=== PATIENT | female | born 1935 | race Caucasian/White ===

== ENCOUNTER 2016-04-13 09:42 | Emergency (ER) | payer OTHER ==
[2016-04-13 09:49] VITALS: TEMP 97.7
--- NOTE | 2016-04-13 10:35 | EDPHY ---
H & P Stated Complaint: LLE swelling x 2 wks;sent from PCPs office for eval poss DVT Time Seen by Provider: 04/13/16 10:08 HPI/ROS: CHIEF COMPLAINT: Left lower extremity edema HISTORY OF PRESENT ILLNESS: 81-year-old female in the ER with daughter with whom she lives complaining of 2 weeks of left lower extremity edema, seen by her PCP this morning referred to the ER for evaluation, ultrasound. No chest pain. No dyspnea. No discoloration lower extremity. No trauma. No immobilization. No thromboembolic disorder history. PRIMARY CARE PROVIDER:[facility] REVIEW OF SYSTEMS: A ten point review of systems was performed and is negative with the exception of the items mentioned in the HPI PAST MEDICAL & SURGICAL HISTORY: No thromboembolic disorder history SOCIAL HISTORY:lives with daughter PHYSICAL EXAM (Prior to examination, patient consented to physical exam, hands were washed and my usual and customary physical exam procedures followed) 1) GENERAL: Well-developed, well-nourished, alert and oriented. Appears to be in no acute distress.Smiling, shakes my hand appears well 2) HEAD: Normocephalic, atraumatic 3) HEENT: Pupils equal, round, reactive to light bilaterally. Sclera anicteric. 4) NECK: Full range of motion, no meningeal signs. 5) LUNGS: Clear auscultation bilaterally, no wheezes, no rhonchi, no retractions. 6) HEART: Regular rate and rhythm, no murmur, no heave, no gallop. 7) ABDOMEN: No guarding, no rebound, no focal tenderness, 8) MUSCULOSKELETAL: Left lower extremity: Asymmetrical soft tissue swelling/ edema of the lower extremities noted. Normal color normal temperature. DP PT pulses are present and brisk and equal bilaterally. Capillary refill is brisk and equal bilaterally with normal color normal temperature of the feet. Compartments are soft 9) BACK: no visual or palpable abnormality. 10) SKIN: No rash, no petechiae. 11) Psychiatric: Patient is oriented X 3, there is no agitation. DIFFERENTIAL DIAGNOSIS: in no particular include but not limited to cellulitis , compartment syndrome, dependent edema, DVT, arterial occlusion - Personal History Current Tetanus Diphtheria and Acellular Pertussis (TDAP): Unsure Tetanus Vaccine Date: < 10 years - Medical/Surgical History Hx Asthma: No Hx Chronic Respiratory Disease: No Hx Diabetes: No Hx Cardiac Disease: Yes Hx Renal Disease: No Hx Cirrhosis: No Hx Alcoholism: No Hx HIV/AIDS: No Hx Splenectomy or Spleen Trauma: No Other PMH: GERD, HTN, laminectomy, heart blood flow condition, tonsillectomy, adenoids removed - Social History Smoking Status: Former smoker Constitutional: Initial Vital Signs Temperature (C) 36.5 C 04/13/16 09:45 Heart Rate 81 04/13/16 09:45 Respiratory Rate 20 04/13/16 09:45 Blood Pressure 120/72 04/13/16 09:45 O2 Sat (%) 97 04/13/16 09:45 O2 Delivery Mode Room Air Allergies/Adverse Reactions: No Known Allergies Allergy (Verified 04/13/16 09:44) Home Medications: Medication Instructions Recorded Esomeprazole Magnesium [Nexium] 20 mg PO 04/13/16 Rivaroxaban [Xarelto 15mg (*)] 15 mg PO BID #42 tab 04/13/16 Medical Decision Making ED Course/Re-evaluation: 11:15 a.m.: Patient noted to have a DVT from the common femoral to the posterior tibial vein. Left message with Dr Colon to discuss possible interventional radiology. Discussed case with Dr Massey. 11:50 a.m.: Phone consultation Dr. Vickie Colon will come to the ER to discuss possible interventional radiology intervention 1:10 p.m.: Dr. Vickie Colon has consulted, does not feel that the benefits outweigh the risks for interventional procedure, recommended outpatient therapy. This was discussed with the patient and her daughter and they feel comfortable with this plan. The patient lives with her daughter and her son-in-law, who is a physician. They would like to be discharged, have been offered admission however they prefer to go home and treated on outpatient basis with Xarelto. 1:20 p.m.: I consulted with the patient's primary care provider Dr. Heard, updated him with the positive DVT findings. He requested that a CT angiography of the chest be obtained as well. 2:40 p.m.: Re-evaluation, discussed her positive CT angiography findings positive for multiple subsegmental pulmonary emboli. She is maintaining normal saturations, normotensive, normal heart rate, normal respiratory rate.. Plan will be discharge home, treatment with Xarelto 50 mg p.o. twice daily times 15 days and then transition to 20 mg. She will need follow-up with Dr. Heard next week (today is Saturday). - Data Points Laboratory Results: Laboratory Results 04/13/16 10:20 04/13/16 10:20 04/13/16 04/13/16 04/13/16 10:20 10:20 10:20 WBC 11.18 10^3/uL H 10^3/uL (3.80-9.50) RBC 4.80 10^6/uL 10^6/uL (4.18-5.33) Hgb 13.3 g/dL g/dL (12.6-16.3) Hct 40.1 % % (38.0-47.0) MCV 83.5 fL fL (81.5-99.8) MCH 27.7 pg L pg (27.9-34.1) MCHC 33.2 g/dL g/dL (32.4-36.7) RDW 13.5 % % (11.5-15.2) Plt Count 372 10^3/uL 10^3/uL (150-400) MPV 8.9 fL fL (8.7-11.7) Neut % (Auto) 64.6 % % (39.3-74.2) Lymph % (Auto) 25.0 % % (15.0-45.0) [place] % (Auto) 7.2 % % (4.5-13.0) Eos % (Auto) 2.3 % % (0.6-7.6) Baso % (Auto) 0.4 % % (0.3-1.7) Nucleat RBC Rel Count 0.0 % % (0.0-0.2) Absolute Neuts (auto) 7.22 10^3/uL H 10^3/uL (1.70-6.50) Absolute Lymphs (auto) 2.79 10^3/uL 10^3/uL (1.00-3.00) Absolute Monos (auto) 0.80 10^3/uL 10^3/uL (0.30-0.80) Absolute Eos (auto) 0.26 10^3/uL 10^3/uL (0.03-0.40) Absolute Basos (auto) 0.05 10^3/uL 10^3/uL (0.02-0.10) Absolute Nucleated RBC 0.00 10^3/uL 10^3/uL (0-0.01) Immature Gran % 0.5 % % (0.0-1.1) Immature Gran # 0.06 10^3/uL 10^3/uL (0.00-0.10) PT 14.6 SEC SEC (12.0-15.0) INR 1.15 (0.83-1.16) APTT 31.0 SEC SEC (23.0-38.0) Sodium 141 mEq/L mEq/L (134-144) Potassium 4.6 mEq/L mEq/L (3.5-5.2) Chloride 106 mEq/L mEq/L (97-110) Carbon Dioxide 23 mEq/l mEq/l (22-31) Anion Gap 12 mEq/L mEq/L (8-16) BUN 15 mg/dL mg/dL (7-23) Creatinine 1.1 mg/dL H mg/dL (0.6-1.0) Estimated GFR 48 Glucose 100 mg/dL mg/dL (70-100) Calcium 9.7 mg/dL mg/dL (8.5-10.4) Departure - Departure Disposition: Home, Routine, Self-Care Clinical Impression: DVT of leg (deep venous thrombosis) Qualifiers: Affected thrombotic vein of extremity: femoral Laterality: left Chronicity: acute Qualified Code(s): I82.412 - Acute embolism and thrombosis of left femoral vein Pulmonary emboli Qualifiers: Pulmonary embolism type: other Chronicity: acute Acute cor pulmonale presence: without acute cor pulmonale Qualified Code(s): I26.99 - Other pulmonary embolism without acute cor pulmonale Condition: Good Instructions: Deep Venous Thrombosis (ED) Additional Instructions: Return to the ER immediately if you develop chest pain, shortness of breath, dizziness, headache, or any other symptoms that concern you. Referrals: Portillo Heard MD [Primary Care Provider] - 2-3 days, call for appt. Prescriptions: Rivaroxaban [Xarelto 15mg (*)] 15 mg PO BID #42 tab
[2016-04-13 10:41] LABS: % IMMATURE GRANULYOCYTES 0.5 % (0.0-1.1); ABSOLUTE IMMATURE GRANULOCYTES 0.06 10^3/uL (0.00-0.10); ADD DIFF? NO; ADD MORPH? NO; ADD SCAN? NO; ATYPICAL LYMPHOCYTE FLAG 10 (0-99); FRAGMENT RBC FLAG 0 (0-99); HEMATOCRIT 40.1 % (38.0-47.0); HEMOGLOBIN 13.3 g/dL (12.6-16.3); LEFT SHIFT FLG 0 (0-99); LIPEMIA HEMOLYSIS FLAG 80 (0-99); MEAN CELL HEMOGLOBIN 27.7 pg (27.9-34.1); MEAN CELL HEMOGLOBIN CONCENTR. 33.2 g/dL (32.4-36.7); MEAN CELL VOLUME 83.5 fL (81.5-99.8); MEAN PLATELET VOLUME 8.9 fL (8.7-11.7); PLATELET CLUMPS FLAG 0 (0-99); PLATELET COUNT 372 10^3/uL (150-400); RED CELL DISTRIBUTION WIDTH 13.5 % (11.5-15.2)
[2016-04-13 10:50] LABS: INR 1.15 (0.83-1.16); PROTIME(PATIENT) 14.6 SEC (12.0-15.0)
[2016-04-13 10:54] LABS: ANION GAP 12 mEq/L (8-16); CALCIUM 9.7 mg/dL (8.5-10.4); CARBON DIOXIDE 23 mEq/l (22-31); CHLORIDE 106 mEq/L (97-110); CREATININE 1.1 mg/dL (0.6-1.0); GLOMERULAR FILTRATION RATE 48; GLUCOSE 100 mg/dL (70-100); POTASSIUM 4.6 mEq/L (3.5-5.2); SODIUM 141 mEq/L (134-144)
[2016-04-13] MEDS ORDERED: IOPAMIDOL (ISOVUE-370) 150 ML BTL IV ONE ×2 (13:28→13:37)
[2016-04-13 13:59] VITALS: RESP 16
[2016-04-13] MEDS ORDERED: RIVAROXABAN 15 MG TAB PO ONE (14:40)
[2016-04-13 15:15] VITALS: BP 119/88; PULSE 89; O2SAT 96
== END 2016-04-13 15:14 | disposition home or self-care (01) ==
DX: I82.412 Acute embolism and thrombosis of left femoral vein (principal); I26.99 Other pulmonary embolism without acute cor pulmonale; I10 Essential (primary) hypertension; Z87.891 Personal history of nicotine dependence; M79.605 Pain in left leg; R60.0 Localized edema; Z91.19 Patient's noncompliance with other medical treatment and regimen
CPT/HCPCS: 71275; 93971; 99285; Q9967; G0463-PO

== ENCOUNTER 2016-09-11 11:23 | Emergency (ER) | payer OTHER ==
[2016-09-11 11:29] VITALS: TEMP 97.5; O2SAT 97
--- NOTE | 2016-09-11 13:35 | EDPHY ---
H & P Stated Complaint: FELL 5 DAYS AGO, LEFT WRIST INJURY Source: Patient, Family Exam Limitations: No limitations - Personal History Current Tetanus/Diphtheria Vaccine: Yes Tetanus Vaccine Date: < 10 years - Medical/Surgical History Hx Asthma: No Hx Chronic Respiratory Disease: No Hx Diabetes: No Hx Cardiac Disease: Yes Hx Renal Disease: No Hx Cirrhosis: No Hx Alcoholism: No Hx HIV/AIDS: No Hx Splenectomy or Spleen Trauma: No Other PMH: GERD, HTN, laminectomy, heart blood flow condition, tonsillectomy, adenoids removed - Social History Smoking Status: Former smoker HPI/ROS: CHIEF COMPLAINT: Fall, wrist pain HISTORY OF PRESENT ILLNESS: Patient complains of fall 5 days ago [place] She fell backwards, putting her left arm out to break her fall. She did not strike her head or lose consciousness. Her daughter was with her and witness this. She states she only caught herself with her left arm. Since that time she has had pain in her left wrist. It is moderate to severe. Minimal when she holds still against her body. No numbness or tingling. No radiating pain. She does have some associated left elbow pain. No other associated complaints or modifying factors. She did not take any anticoagulants. MEDICAL HISTORY: Hypertension and diabetes SOCIAL HISTORY: Lives independently here with her family REVIEW OF SYSTEMS: Ten systems reviewed and are negative unless otherwise noted in the HPI EXAMINATION General Appearance: Alert, no distress Cardiovascular: Pulses normal throughout. Symmetric radial pulses 2+ Brisk cap refill Neurological: A&O, sensory symmetric, strength symmetric. Normal strength of the interossei. Normal sensation in the radial, median ulnar distributions Skin: Warm and dry, no rash mild ecchymosis over the wrist Extremities: Tenderness over the left elbow generally. No point tenderness of the radial head. There is tenderness of the distal wrist. No tenderness of the anatomic snuffbox on the left. No tenderness of the metacarpals. Range of motion of the left elbow was intact. Range of motion of left shoulder intact. Neurovascular intact distal to the injury. Psychiatric: Mood and affect normal DIFFERENTIAL DIAGNOSES: Including but not limited to fracture, sprain, strain, dislocation, fracture dislocation, contusion, hematoma MDM: 12:30 p.m. Mechanical fall 5 days ago with pain in the left wrist. She does have radial compression fracture and ulnar styloid fracture by my interpretation. She is neurovascular intact. There is some pain of the elbow, thus I have ordered elbow x-ray. No head or neck injury. No loss of conscious. No headache. No chest or back pain. She is resting comfortably in no acute distress. 1:30 p.m. X-ray of the elbow is unremarkable for acute fracture dislocation. Films been reviewed Dr. Foster. He recommends hand consultation for the possibility of reduction versus surgical intervention. 2:30 p.m. Case has been discussed between Dr. Foster and PA with Dr. Pérez office. They recommended attempted reduction of the wrist and they would like to see the patient in the morning in their office. We discussed this with the patient. They were at 1st reluctant to stay as they had other obligations to go home to. However they reconsidered. They have allowed us to proceed with closed reduction. I have applied a hematoma block. I will place her in the finger traps and attempt gentle traction reduction. She remains neurovascular intact. 3:00 p.m. I have performed a closed reduction of the left distal radius fracture. There was minimal improvement by visualization. The x-ray shows minimal change if any at all. She was discharged home in stable condition in a splint. She was instructed to be nonweightbearing on the extremity and follow up tomorrow morning with Dr. Pérez. She was discharged home stable condition. Procedure: Hematoma block Indication: Left wrist fracture Consent: Verbal from patient and daughter at bedside Description: The dorsum of the left wrist was prepped with chlorhexidine. 7 mL as of 1% lidocaine plain was infused over the area fracture line. Good anesthesia. Tolerated well. No complication. Brisk cap refill distally. PROCEDURE: Closed reduction of distal radius fracture Consent: Verbal Location: Left distal radius Anesthesia: Hematoma block Procedure: After good anesthesia, the patient's fingers were placed in finger traps. Gentle traction was applied. There was some manipulation of the distal radius. By visualization, there is improvement in the alignment. Patient be placed in a splint and x-ray performed for post attempted reduction pain Complications: None Post-reduction film: Pending ED Precautions: Worsening pain. Erythema, edema, cyanosis, pallor, paresthesia or anesthesia. SUPERVISION: Patient was evaluated in conjunction with the supervising physician. Please see their note for details. (Micah Mccartney) Constitutional: Initial Vital Signs Temperature (C) 36.4 C 09/11/16 11:25 Heart Rate 76 09/11/16 11:25 Respiratory Rate 16 09/11/16 11:25 Blood Pressure 133/69 H 09/11/16 11:25 O2 Sat (%) 97 09/11/16 11:25 O2 Delivery Mode Room Air Allergies/Adverse Reactions: No Known Allergies Allergy (Verified 09/11/16 11:30) Home Medications: Medication Instructions Recorded Esomeprazole Magnesium [Nexium] 20 mg PO 04/13/16 Rivaroxaban [Xarelto 15mg (*)] 15 mg PO BID #42 tab 04/13/16 Levothyroxine 09/11/16 Probiotic 09/11/16 Sertraline HCl 09/11/16 Medical Decision Making - Diagnostics Imaging Results: Imaging Impressions Wrist X-Ray 09/11/16 11:32 Impression: 1. Acute comminuted intraarticular distal radial fracture with minimal angulation. 2. Acute minimally displaced ulnar styloid fracture. 3. Intact navicular bone. Elbow X-Ray 09/11/16 12:31 Impression: Negative. No acute fracture or effusion. Wrist X-Ray 09/11/16 14:43 Impression: Minimally improved alignment of comminuted intraarticular distal radius fracture now in splint. Other Provider: PHYSICIAN DOCUMENTATION: The patient was evaluated and managed by the Physician Mechanical Applications Engineer and myself. I have reviewed the chart and agree with the findings and plan of care as documented. In addition, I examined the patient myself at 1404. History confirmed as fall/injury 5 days ago. Physical findings as follows: Normal capillary refill, motor and sensation distally. Discussed with Tigist Pérez, Dr. Pérez reviewed x-rays and recommended follow-up tomorrow in the office at 8:15 a.m., NPO after midnight, attempt at reduction in the emergency department but surgery tomorrow afternoon if unsuccessful. Patient and daughter warned surgeon may recommend ORIF, NPO after midnight tonight to be eligible for procedure tomorrow if desired. I am the secondary supervising physician. (Candelario Foster) Departure - Departure Disposition: Home, Routine, Self-Care Clinical Impression: Radius distal fracture Qualifiers: Encounter type: initial encounter Fracture type: closed Fracture morphology: unspecified fracture morphology Laterality: left Qualified Code(s): S52.502A - Unspecified fracture of the lower end of left radius, initial encounter for closed fracture Fracture of ulnar styloid Qualifiers: Encounter type: initial encounter Fracture type: closed Fracture alignment: displaced Laterality: left Qualified Code(s): S52.612A - Displaced fracture of left ulna styloid process, initial encounter for closed fracture Condition: Good Instructions: Wrist Fracture in Adults (ED), Splint Care (ED) Additional Instructions: 1. Splint in place at all times 2. Follow-up tomorrow morning a.m. in Dr. Pérez office here in [place] 3. Nothing to eat or drink after midnight tonight Referrals: Arthur Pérez MD [Medical Doctor] - 09/12/16 8:00 am (No food or water, no oral intake after midnight tonight. See Dr. Pérez in the office tomorrow appointment is at 0815.)
[2016-09-11 15:16] VITALS: BP 128/66; PULSE 75; RESP 18
== END 2016-09-11 15:16 | disposition home or self-care (01) ==
PROC: 0PSJXZZ Reposition Left Radius, External Approach (ICD-10-PCS; principal; 2016-09-11)
DX: S52.502A Unspecified fracture of the lower end of left radius, initial encounter for closed fracture (principal); S52.612A Displaced fracture of left ulna styloid process, initial encounter for closed fracture; I10 Essential (primary) hypertension; E11.9 Type 2 diabetes mellitus without complications; Z87.891 Personal history of nicotine dependence; W18.39XA Other fall on same level, initial encounter
CPT/HCPCS: 25605; 73080; 73100; 73110; 99283; A4565

== ENCOUNTER 2016-09-12 13:23 | Day surgery (SDC) | payer OTHER ==
[2016-09-12] MEDS ORDERED: BUPIVACAINE 0.5% 30 ML SDV ONE ×2 (13:29→14:43)
[2016-09-12] MEDS ORDERED: LR 1,000 ML IV ONE (14:15)
[2016-09-12] MEDS ORDERED: MIDAZOLAM 2 MG/2 ML VIAL IVP ONE (14:32)
[2016-09-12] MEDS ORDERED: MIDAZOLAM 2 MG/2 ML VIAL ONE (14:34)
[2016-09-12] MEDS ORDERED: fentaNYL 100 MCG/2 ML INJ ONE (14:38)
[2016-09-12] MEDS ORDERED: PROPOFOL 200 MG/20 ML VIAL ONE (14:38)
[2016-09-12] MEDS ORDERED: CEFAZOLIN 1 GM/DEXTROSE/50 ML BAG IV ONE (14:53)
[2016-09-12] MEDS ORDERED: LIDOCAINE 2% 5 ML SDV ONE (15:29)
[2016-09-12] MEDS ORDERED: ONDANSETRON 4 MG/2 ML VIAL ONE (15:29)
[2016-09-12 15:54] VITALS: BP 124/75; RESP 16; TEMP 97.7
[2016-09-12] MEDS ORDERED: fentaNYL 100 MCG/2 ML INJ IVP PRN (15:54)
[2016-09-12] MEDS ORDERED: NALOXONE HCL 0.4 MG/ML INJ IVP PRN (15:54)
[2016-09-12] MEDS ORDERED: OXYCODONE/APAP 5/325 TAB PO PRN (15:54)
[2016-09-12] MEDS ORDERED: HYDROCODONE/APAP 5/325 TAB PO PRN (15:54)
[2016-09-12] MEDS ORDERED: ONDANSETRON 4 MG/2 ML VIAL IVP PRN (15:54)
[2016-09-12] MEDS ORDERED: ACETAMINOPHEN 500 MG TAB PO PRN (15:54)
--- NOTE | 2016-09-12 15:56 | POSTANESTH ---
Post Anesthetic Evaluation Cardiovascular Status: Normal, Stable Respiratory Status: Normal, Stable Level of Consciousness/Mental Status: Can Participate in Eval Pain Control: Adequate, Prn Tx Ordered Nausea/Vomiting Control: Adequate, Prn Tx Ordered Complications Possibly Related to Anesthesia: None Noted
[2016-09-12 17:00] VITALS: PULSE 88; O2SAT 98
--- NOTE | 2016-09-13 01:39 | GOP ---
[f rep st] OPERATIVE REPORT DATE OF OPERATION: 09/12/2016 SURGEON: Arthur Pérez MD ANESTHESIA: Supraclavicular nerve block. PREOPERATIVE DIAGNOSIS: Left comminuted and displaced intra-articular fracture, distal radius, grea ter than 2 part. POSTOPERATIVE DIAGNOSIS: Left comminuted and displaced intra-articular fracture, distal radius, gre ater than 2 part. PROCEDURE PERFORMED: Closed reduction and percutaneous pinning, left distal radius fracture. FINDINGS: DESCRIPTION OF PROCEDURE: The patient was taken to the operative room, administered a supraclavicul ar nerve block and had her left upper extremity prepped and draped in normal sterile fashion. A bra chial tourniquet was applied, but not elevated. A closed reduction was performed under fluoroscopy using a hyper dorsiflexion distraction volar flexion maneuver. This brought the fracture fragments into appropriate alignment. They were not secure, and therefore, they were pinned with a 2 mm Pérez moser pin. Brought through the radial styloid process, and a 1.6 mm Steinmann pin brought through th e lunate fossa fracture segment. We had excellent reduction in both planes, and therefore, a steril e dressing followed by a coaptation splint was applied. The patient tolerated procedure well, was t ransferred back to recovery in stable condition. No operative complications. COMPLICATIONS: None. /[id number]/MODL
== END 2016-09-12 16:58 | disposition home or self-care (01) ==
LOC: FSGY 13:23
PROVIDERS: ATTEND Orthopaedic Surgery Sports Medicine
PROC: 0PSJ34Z Reposition Left Radius with Internal Fixation Device, Percutaneous Approach (ICD-10-PCS; principal; 2016-09-12 14:00)
DX: S52.572A Other intraarticular fracture of lower end of left radius, initial encounter for closed fracture (principal); W19.XXXA Unspecified fall, initial encounter; Y92.89 Other specified places as the place of occurrence of the external cause; Z86.711 Personal history of pulmonary embolism; Z86.718 Personal history of other venous thrombosis and embolism; Z79.01 Long term (current) use of anticoagulants
CPT/HCPCS: 25606; C1769; J0690; J2250; J2405; J2704; J3010

== ENCOUNTER 2017-04-10 16:02 | Inpatient (IN) | payer OTHER ==
[2017-04-10 17:06] LABS: PLATELET COUNT 300 10^3/uL (150-400)
[2017-04-10] MEDS ORDERED: IOPAMIDOL (ISOVUE 370) 100 ML BTL IV ONE (17:20)
--- NOTE | 2017-04-10 17:45 | EDPHY ---
H & P Stated Complaint: blood clots Time Seen by Provider: 04/10/17 16:33 HPI/ROS: Chief Complaint: Right leg pain and swelling HPI: 82-year-old woman presenting with right leg pain and swelling for the past 2-3 days. She does have a history of a DVT in the left leg. She lives with her daughter who says that she is very sedentary. Is not currently on any blood thinning medications. She had outpatient ultrasound performed which shows extensive right leg DVT. She was sent here for further care. No chest pain or shortness of breath. No cough. No fevers or chills. She says her legs not feel cold. No recent injuries. ROS: 10 point Review of Systems is negative except as noted in the HPI. PMH: Hypothyroidism, DVT Social History: No smoking, no alcohol, no recreational drug use Family History: non-contributory Physical Exam: Gen: Awake, Alert, No Distress HEENT: Nose: no rhinorrhea Eyes: PERRLA, EOMI Mouth: Moist mucosa Neck: Supple, no JVD Chest: nontender, lungs clear to auscultation Heart: S1, S2 normal, no murmur Abd: Soft, non-tender, no guarding Back: no CVA tenderness, no midline tenderness Ext: Right leg is edematous and tender from the calf to the meth to upper thigh. There is no erythema. She has calf tenderness. Right calf measures about 2 cm in greater circumference than the left. She has 2+ dorsalis pedis pulses. Sensations intact. Capillary refills less than 2 sec. Skin: no rash Neuro: CN II-XII intact, Sensation grossly intact, Strength 5/5 in bilateral upper and lower extremities - Personal History Current Tetanus/Diphtheria Vaccine: Yes Current Tetanus Diphtheria and Acellular Pertussis (TDAP): Yes Tetanus Vaccine Date: < 10 years - Medical/Surgical History Hx Asthma: No Hx Chronic Respiratory Disease: No Hx Diabetes: No Hx Cardiac Disease: Yes Hx Renal Disease: No Hx Cirrhosis: No Hx Alcoholism: No Hx HIV/AIDS: No Hx Splenectomy or Spleen Trauma: No Other PMH: GERD, HTN, laminectomy, heart blood flow condition, tonsillectomy, adenoids removed - Social History Smoking Status: Former smoker Constitutional: Initial Vital Signs Temperature (C) 36.6 C 04/10/17 16:24 Heart Rate 89 04/10/17 16:24 Respiratory Rate 20 04/10/17 16:24 Blood Pressure 132/76 H 04/10/17 16:24 O2 Sat (%) 92 04/10/17 16:24 O2 Delivery Mode Room Air Allergies/Adverse Reactions: No Known Allergies Allergy (Verified 04/10/17 16:21) Home Medications: Medication Instructions Recorded Esomeprazole Magnesium [Nexium] 20 mg PO 04/13/16 Levothyroxine 09/11/16 Probiotic 09/11/16 Medical Decision Making - Diagnostics EKG Interpretation: ECG time 6:44 p.m. Sinus rhythm with a rate of 92, normal axis, borderline R- wave progression, no acute ST or T-wave changes. Imaging Results: Imaging Impressions Extremity Venous Study 04/10/17 15:12 Impression: 1. There is extensive deep venous thrombosis from the visualized distal right common iliac and right external iliac vein, involving the common femoral and the femoral vein, the popliteal vein, and the posterior tibial and peroneal veins. 2. Superficial venous thrombosis involving the [id number] thigh portion of the right greater saphenous vein (to the saphenofemoral junction). Findings were discussed with Nikos HAYS MD at 3:57 PM, on 04/10/2017. Chest/Thorax CTA 04/10/17 16:43 Impression: 1. Small to moderate volume pulmonary emboli, mostly in the right lower lobe. 2. Partially visualized subcentimeter hypodensity in the pancreatic body, incompletely evaluated. Consider follow-up MRI pancreatic protocol to further evaluate. 3. Stable pulmonary nodules measuring up to 5 mm. Per Fleischner Society 2017 guidelines, no additional follow-up is needed. Dr. Ryan discussed these findings by telephone with Humble Mckeon MD on at 1810 hours. Imaging: Discussed imaging studies w/ residential assistant Radiologist ED Course/Re-evaluation: 82-year-old with extensive right leg DVT going into the iliac veins. She also has bilateral PEs right greater than left with a small to moderate clot burden. No CT findings suggestive of heart strain. Troponin is negative. I have discussed with Dr. Ryan who is also discussed with Dr. Colon, interventional Radiology. They do not feel that intravenous thrombolytics are indicated at this time. I have also discussed with Dr. Morrissey, hospitalist. He will admit to his service. He would like Lovenox now. This has been ordered. Patient be admitted to [facility] under observation status. - Data Points Laboratory Results: Laboratory Results 04/10/17 17:00 04/10/17 17:00 04/10/17 04/10/17 04/10/17 17:00 17:00 17:00 WBC 11.92 10^3/uL H 10^3/uL (3.80-9.50) RBC 4.61 10^6/uL 10^6/uL (4.18-5.33) Hgb 12.1 g/dL L g/dL (12.6-16.3) Hct 37.5 % L % (38.0-47.0) MCV 81.3 fL L fL (81.5-99.8) MCH 26.2 pg L pg (27.9-34.1) MCHC 32.3 g/dL L g/dL (32.4-36.7) RDW 14.2 % % (11.5-15.2) Plt Count 300 10^3/uL 10^3/uL (150-400) MPV 8.9 fL fL (8.7-11.7) Neut % (Auto) 64.2 % % (39.3-74.2) Lymph % (Auto) 24.9 % % (15.0-45.0) [place] % (Auto) 7.6 % % (4.5-13.0) Eos % (Auto) 2.4 % % (0.6-7.6) Baso % (Auto) 0.3 % % (0.3-1.7) Nucleat RBC Rel Count 0.0 % % (0.0-0.2) Absolute Neuts (auto) 7.65 10^3/uL H 10^3/uL (1.70-6.50) Absolute Lymphs (auto) 2.97 10^3/uL 10^3/uL (1.00-3.00) Absolute Monos (auto) 0.91 10^3/uL H 10^3/uL (0.30-0.80) Absolute Eos (auto) 0.29 10^3/uL 10^3/uL (0.03-0.40) Absolute Basos (auto) 0.03 10^3/uL 10^3/uL (0.02-0.10) Absolute Nucleated RBC 0.00 10^3/uL 10^3/uL (0-0.01) Immature Gran % 0.6 % % (0.0-1.1) Immature Gran # 0.07 10^3/uL 10^3/uL (0.00-0.10) PT 14.8 SEC SEC (12.0-15.0) INR 1.17 H (0.83-1.16) APTT 30.7 SEC SEC (23.0-38.0) Sodium 139 mEq/L mEq/L (135-145) Potassium 4.4 mEq/L mEq/L (3.5-5.2) Chloride 101 mEq/L mEq/L (97-110) Carbon Dioxide 23 mEq/l mEq/l (22-31) Anion Gap 15 mEq/L mEq/L (8-16) BUN 16 mg/dL mg/dL (7-23) Creatinine 1.1 mg/dL H mg/dL (0.6-1.0) Estimated GFR 47 Glucose 110 mg/dL H mg/dL (70-100) Calcium 9.0 mg/dL mg/dL (8.5-10.4) Troponin I < 0.012 ng/mL ng/mL (0.000-0.034) Medications Given: Discontinued Medications Enoxaparin Sodium (Lovenox) 70 mg SC EDNOW ONE Stop: 04/10/17 18:42 Last Admin: 04/10/17 18:57 Dose: 70 mg Departure - Departure Disposition: [facility] Clinical Impression: Pulmonary embolism, DVT (deep venous thrombosis) Condition: Fair
[2017-04-10 18:27] LABS: INR 1.17 (0.83-1.16); PROTIME(PATIENT) 14.8 SEC (12.0-15.0)
[2017-04-10] MEDS ORDERED: ENOXAPARIN 60 MG/0.6 ML SYR SC ONE ×2 (18:41→18:47)
[2017-04-10] MEDS ORDERED: ONDANSETRON 4 MG/2 ML VIAL IVP PRN (18:47)
[2017-04-10] MEDS ORDERED: ACETAMINOPHEN 325 MG TAB PO PRN (18:47)
[2017-04-10] MEDS ORDERED: oxyCODONE IR 5 MG TAB PO PRN (18:47)
[2017-04-10] MEDS ORDERED: ONDANSETRON DISINTEGRATING 4 MG TAB PO PRN (18:47)
--- NOTE | 2017-04-10 18:47 | CPEKG ---
Heart Rate: 92 RR Interval: 652 P-R Interval: 184 QRSD Interval: 84 QT Interval: 352 QTC Interval: 436 P [place]: 15 QRS [place]: 64 T Wave [place]: 9 EKG Severity - BORDERLINE ECG - EKG Impression: SINUS RHYTHM EKG Impression: PROBABLE LEFT ATRIAL ABNORMALITY EKG Impression: BORDERLINE R WAVE PROGRESSION, ANTERIOR LEADS Electronically Signed By: Humble Mckeon 10-Apr-2017 20:09:32
[2017-04-10] MEDS ORDERED: POLYETHYLENE GLYCOL 3350 17 GM PKT PO PRN (18:50)
[2017-04-10] MEDS ORDERED: ENOXAPARIN 80 MG/0.8 ML SYR SC ONE (18:50)
[2017-04-10] MEDS ORDERED: LACTULOSE 20 GM/30 ML UDCUP PO PRN (18:50)
[2017-04-10] MEDS ORDERED: BISACODYL 10 MG SUPP PR PRN (18:50)
[2017-04-10] MEDS ORDERED: MAGNESIUM HYDROXIDE 30 ML UDCUP PO PRN (18:50)
--- NOTE | 2017-04-10 22:15 | PDGENHP ---
History and Physical - Chief Complaint Acute leg pain - History of Present Illness Primary care provider: Dr. Heard HPI: 82-year-old female presents with acute leg pain characterized as a cramping pain located diffusely throughout her right lower extremity, but worse in the upper inner thigh with associated swelling, erythema at that location and some induration. The patient reports onset of symptoms 3 days ago and duration has been persistent thereafter. She reports that the tenderness in the affected area is exacerbated with palpation. She is able to safely ambulate. She does experience some exertional shortness of breath. Shortness of breath is alleviated with rest. She denies any recent travel, but does endorse that she is sedentary during the vast majority of the day, ambulating only when needed. The patient was on systemic anticoagulation until several months prior, when it was discontinued without any adverse events. The patient denies any history of bleeding or falls. History Information - Allergies/Home Medication List Allergies/Adverse Reactions: No Known Allergies Allergy (Verified 04/10/17 16:21) Home Medications: Esomeprazole Magnesium [Nexium] 20 mg PO DAILY 04/13/16 [Last Taken 04/10/17] Herbals/Supplements -Info Only 1 ea PO DAILY #0 09/11/16 [Last Taken 04/10/17] Levothyroxine [Synthroid 75 mcg (*)] 75 mcg PO DAILY06 #0 09/11/16 [Last Taken 04/10/17] I have personally reviewed and updated: family history, medical history, social history, surgical history - Past Medical History DVT (Left lower extremity in April of 2016 with small volume pulmonary embolism) Additional medical history: Chronic kidney disease stage 3 with baseline creatinine 1.1 - Surgical History Additional surgical history: Right radial fracture with orthopedic repair September of 2016 - Family History Additional family history: No family history of VTE - Social History Smoking Status: Former smoker Alcohol Use: Occasionally Drug Use: None Additional social history: Patient does traveled to [facility] regularly but she has not done so and at least the past 3 months, she lives a very sedentary lifestyle Review of Systems Review of Systems: ROS: 10pt was reviewed & negative except for what was stated in HPI & below Cardiac: Reports: edema (Right lower extremity) Respiratory: Reports: shortness of breath Physical Exam Physical Exam: Temp Pulse Resp BP Pulse Ox 36.8 C 92 18 127/92 H 94 04/10/17 21:35 04/10/17 21:35 04/10/17 21:35 04/10/17 21:35 04/10/17 21:35 O2 (L/minute) 2 Constitutional: no apparent distress, appears nourished, not in pain Eyes: PERRL, anicteric sclera, EOMI Ears, Nose, Mouth, Throat: moist mucous membranes, hard of hearing Cardiovascular: regular rate and rhythym, no murmur, rub, or gallop, edema (1+ right lower extremity), No irregularly irregular, No tachycardia Respiratory: no respiratory distress, no rales or rhonchi, clear to auscultation Gastrointestinal: normoactive bowel sounds, soft, non-tender abdomen, no palpable masses, No distension Skin: other (Mild induration in the right inner thigh with some blanchable erythema) Neurologic: AAOx3, sensation intact bilaterally, No weakness (Motor strength 5/ 5 bilateral upper and lower extremities) Psychiatric: interacting appropriately, not anxious, not encephalopathic, thought process linear Lab Data & Imaging Review 04/10/17 17:00 04/10/17 17:00 WBC 11.92 10^3/uL (3.80-9.50) H 04/10/17 17:00 RBC 4.61 10^6/uL (4.18-5.33) 04/10/17 17:00 Hgb 12.1 g/dL (12.6-16.3) L 04/10/17 17:00 Hct 37.5 % (38.0-47.0) L 04/10/17 17:00 MCV 81.3 fL (81.5-99.8) L 04/10/17 17:00 MCH 26.2 pg (27.9-34.1) L 04/10/17 17:00 MCHC 32.3 g/dL (32.4-36.7) L 04/10/17 17:00 RDW 14.2 % (11.5-15.2) 04/10/17 17:00 Plt Count 300 10^3/uL (150-400) 04/10/17 17:00 MPV 8.9 fL (8.7-11.7) 04/10/17 17:00 Neut % (Auto) 64.2 % (39.3-74.2) 04/10/17 17:00 Lymph % (Auto) 24.9 % (15.0-45.0) 04/10/17 17:00 Carolina % (Auto) 7.6 % (4.5-13.0) 04/10/17 17:00 Eos % (Auto) 2.4 % (0.6-7.6) 04/10/17 17:00 Baso % (Auto) 0.3 % (0.3-1.7) 04/10/17 17:00 Nucleat RBC Rel Count 0.0 % (0.0-0.2) 04/10/17 17:00 Absolute Neuts (auto) 7.65 10^3/uL (1.70-6.50) H 04/10/17 17:00 Absolute Lymphs (auto) 2.97 10^3/uL (1.00-3.00) 04/10/17 17:00 Absolute Monos (auto) 0.91 10^3/uL (0.30-0.80) H 04/10/17 17:00 Absolute Eos (auto) 0.29 10^3/uL (0.03-0.40) 04/10/17 17:00 Absolute Basos (auto) 0.03 10^3/uL (0.02-0.10) 04/10/17 17:00 Absolute Nucleated RBC 0.00 10^3/uL (0-0.01) 04/10/17 17:00 Immature Gran % 0.6 % (0.0-1.1) 04/10/17 17:00 Immature Gran # 0.07 10^3/uL (0.00-0.10) 04/10/17 17:00 PT 14.8 SEC (12.0-15.0) 04/10/17 17:00 INR 1.17 (0.83-1.16) H 04/10/17 17:00 APTT 30.7 SEC (23.0-38.0) 04/10/17 17:00 Sodium 139 mEq/L (135-145) 04/10/17 17:00 Potassium 4.4 mEq/L (3.5-5.2) 04/10/17 17:00 Chloride 101 mEq/L (97-110) 04/10/17 17:00 Carbon Dioxide 23 mEq/l (22-31) 04/10/17 17:00 Anion Gap 15 mEq/L (8-16) 04/10/17 17:00 BUN 16 mg/dL (7-23) 04/10/17 17:00 Creatinine 1.1 mg/dL (0.6-1.0) H 04/10/17 17:00 Estimated GFR 47 04/10/17 17:00 Glucose 110 mg/dL (70-100) H 04/10/17 17:00 Calcium 9.0 mg/dL (8.5-10.4) 04/10/17 17:00 Troponin I < 0.012 ng/mL (0.000-0.034) 04/10/17 17:00 Visualized and Interpreted EKG results: Yes EKG Interpretation: Positive for: other (Normal sinus mechanism, S-wave in lead 3, poor R-wave progression in leads V2 to V3) Assessment & Plan Assessment: 82-year-old female presenting with acute, 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 Deep venous thrombosis and pulmonary embolism. Present on admission, acute, recurrent, located in the right lower extremity with extension into the right common iliac and resultant small volume bilateral PEs right greater than left -most likely secondary to the patient's very sedentary lifestyle as well as a likely genetic predisposition to is thromboembolism -given her recurrence, the patient should most likely be on lifelong systemic anticoagulation -patient has not previously had any complications with Xarelto, and the patient is amenable to restarting, this will be re-initiated in the morning, 15 mg twice daily x3 weeks, then 20 mg daily thereafter -I have discussed with Dr. Shine Mckeon at urgent care, he reports to me that he has ordered the patient for an initial dose of Lovenox this evening -reviewed outside records including 04/13/[address] Vickie Colon, she evaluated the patient for a left lower extremity deep venous thrombosis that was approximately 2-week-old, and most likely secondary to the patient's sedentary lifestyle, was deemed not a good interventional situation or candidate and elevation, compression stocking and anticoagulation or the recommendations -Dr. Colon has evaluated the patient's case on this hospitalization, and she does not believe that the area requires interventional radiology lysis -will defer to the outpatient setting whether the patient chooses to undergo further workup including possible colonoscopy or mammography to rule out underlying concomitant malignancy 2. Chronic kidney disease stage 3. Creatinine currently at baseline, continue to monitor Diet. Regular Prophylaxis. High risk patient, currently on Lovenox, transitioning to Xarelto tomorrow morning Code. Do not resuscitate per patient, her son-in-law Marcel is her MD POA Disposition. Anticipated discharge is 04/11/2017, pending stabilization of above
[2017-04-10] MEDS: SENNOSIDES/DOCUSATE SODIUM TAB PO SCH (23:47)
[2017-04-10] MEDS: ENOXAPARIN 80 MG/0.8 ML SYR SC SCH (23:48)
[2017-04-11] MEDS: LEVOTHYROXINE 75 MCG TAB PO SCH (05:15)
[2017-04-11 05:42] LABS: PLATELET COUNT 288 10^3/uL (150-400)
[2017-04-11] MEDS: PANTOPRAZOLE SODIUM 40 MG TAB PO SCH (07:57)
[2017-04-11] MEDS: SENNOSIDES/DOCUSATE SODIUM TAB PO SCH ×2 (07:58→22:20)
[2017-04-11] MEDS: RIVAROXABAN 15 MG TAB PO SCH ×2 (07:59→18:06)
[2017-04-11] MEDS ORDERED: Herbals/Supplements -Info Only PO SCH (09:00)
--- NOTE | 2017-04-11 14:42 | HOSPPROG ---
Hospitalist Progress Note Assessment/Plan: #Extensive LLE DVT and pulmonary embolism -extensive RLE clot in 04/27. At that time lysis not done due to high-risk bleeding/age/dementia -due to immobility -extensive conversation with daughter. Does not want any interventions like IVC filter or lysis -Xarelto #Dementia: progressive weakness and lethargy per daughter #Fatigue #Depression: trialed SSRI in past, but used only for 6 weeks. Start Remeron which may help with appetite #Deconditioning: daughter okay with rehab if needed #Diet:regular #DVT ppx: Xarelto #Goals: daughter wants comfort/quality measures. No procedures. Open to Palliative care outpatient, place consult Time spent on visit: 45 min with patient and daughter/son-in-law. discussing treatment options, goals and Palliative Care Subjective: mild right thigh pain when moves. No CP or SOB Objective: Vital Signs Temp Pulse Resp BP Pulse Ox 37.1 C 97 16 101/60 90 L 04/11/17 12:17 04/11/17 12:17 04/11/17 12:17 04/11/17 12:17 04/11/17 12:17 Laboratory Results 04/11/17 04:54 04/11/17 04:54 04/10/17 04/11/17 04/12/17 05:59 05:59 05:59 Intake Total 350 Output Total 350 Balance 0 PT 14.8 SEC (12.0-15.0) 04/10/17 17:00 INR 1.17 (0.83-1.16) H 04/10/17 17:00 - Time Spent With Patient Time Spent with Patient: greater than 35 minutes Time Spent with Patient: Greater than 35 minutes spent on this patients care, greater than 50% of time spent counseling, educating, and coordinating care regarding the above mentioned plan. - Physical Exam Constitutional: no apparent distress Eyes: PERRL Ears, Nose, Mouth, Throat: moist mucous membranes Cardiovascular: regular rate and rhythym, no murmur, rub, or gallop Respiratory: no respiratory distress Gastrointestinal: normoactive bowel sounds, soft, non-tender abdomen Genitourinary: no bladder fullness Skin: warm Musculoskeletal: full muscle strength, other (right thigh, calf swollen. Mild TTP over thigh. No signs of infection) Neurologic: AAOx3, CN II-XII Intact ICD10 Worksheet Patient Problems: Problems Problem Status Onset DVT (deep venous thrombosis) Acute Pulmonary embolism Acute
--- NOTE | 2017-04-11 15:19 | ASMTCMCOM ---
CM Note CM Note Notes: Met with pt's dtr Dorothy to discuss DC plan. Pt currently lives in a small attached apt at dtr's home. PT and OT are recommending SNF. Currently patient is OBS. Pt will need to be inpt for 3 days for Medicare to pay. Dtr will be choosing between [facility] and [facility]. Referral faxed to both. CM will continue to follow. Date Signed: 04/11/2017 03:18 PM Electronically Signed By:Desiree Boss LCSW
[2017-04-12] MEDS: LEVOTHYROXINE 75 MCG TAB PO SCH (06:24)
[2017-04-12] MEDS: PANTOPRAZOLE SODIUM 40 MG TAB PO SCH (09:38)
[2017-04-12] MEDS: RIVAROXABAN 15 MG TAB PO SCH ×2 (09:38→19:05)
[2017-04-12] MEDS: SENNOSIDES/DOCUSATE SODIUM TAB PO SCH (09:38)
--- NOTE | 2017-04-12 09:44 | PDMN ---
Medical Necessity Medical necessity: Change to IP, as of 04/11/17, per MD; los >2 mn for ongoing management of extensive LLE DVT & PE w/progressive weakness & lethargy; admit for further monitoring, Palliative Care consult & therapies; comorbid advanced age, dementia, sedentary lifestyle & CKD stage 3; per progress note & order
--- NOTE | 2017-04-12 15:43 | ASMTCMCOM ---
CM Note CM Note Notes: Patient chart reviewed. She has been accepted to [facility] as well as [facility] and per her daughter they would like to get [facility] involved as well. Per therapy notes she is recommended to go to SNF for rehab. She was made inpatient last night and will be ready for transfer Saturday if she is medically cleared to go. CM to follow Date Signed: 04/12/2017 03:42 PM Electronically Signed By:Jyothi Oliva RN
[2017-04-12] MEDS: LOPERAMIDE HCL 2 MG CAP PO PRN (19:05)
--- NOTE | 2017-04-12 19:09 | HOSPPROG ---
Hospitalist Progress Note Assessment/Plan: #Extensive LLE DVT and pulmonary embolism -h/o extensive RLE clot in 04/27. At that time lysis not done due to high-risk bleeding/age/dementia -extensive conversation with daughter. Does not want any interventions like IVC filter or lysis. Focus on comfort. -Xarelto #Dementia: progressive weakness, decreased appetite #Depression: trialed SSRI in past, but used only for 6 weeks. Start Remeron which may help with appetite #Deconditioning: daughter okay with rehab if needed #Diet:regular #DVT ppx: Xarelto #Goals: daughter wants comfort/quality measures. No procedures. [facility]. #Disp: SNF pending, can DC Saturday if accepted Subjective: no CP or SOB. Min pain in right thigh Objective: Vital Signs Temp Pulse Resp BP Pulse Ox 36.8 C 87 16 106/59 L 93 04/12/17 17:17 04/12/17 17:17 04/12/17 17:17 04/12/17 17:17 04/12/17 17:17 Laboratory Results 04/12/17 04:42 04/12/17 04:42 04/11/17 04/12/17 04/13/17 05:59 05:59 05:59 Intake Total 475 1300 Balance 475 1300 PT 14.8 SEC (12.0-15.0) 04/10/17 17:00 INR 1.17 (0.83-1.16) H 04/10/17 17:00 - Physical Exam Constitutional: no apparent distress Eyes: PERRL Ears, Nose, Mouth, Throat: moist mucous membranes, hearing normal Cardiovascular: regular rate and rhythym, no murmur, rub, or gallop Respiratory: no respiratory distress Gastrointestinal: normoactive bowel sounds Genitourinary: no bladder fullness Skin: warm Musculoskeletal: other (right thigh, calf swollen, no redness. Min TTP over right thigh) Neurologic: CN II-XII Intact Psychiatric: interacting appropriately ICD10 Worksheet Patient Problems: Problems Problem Status Onset DVT (deep venous thrombosis) Acute Pulmonary embolism Acute
[2017-04-12] MEDS: MIRTAZAPINE 15 MG TAB PO SCH (22:15)
[2017-04-13] MEDS: SENNOSIDES/DOCUSATE SODIUM TAB PO SCH ×2 (01:08→19:41)
[2017-04-13] MEDS: LEVOTHYROXINE 75 MCG TAB PO SCH (06:19)
[2017-04-13] MEDS: NEXIUM 20 MG PO SCH (08:49)
[2017-04-13] MEDS: RIVAROXABAN 15 MG TAB PO SCH ×2 (08:49→19:47)
[2017-04-13] MEDS: [UNRECOGNIZED DRUG - OTHER] PO SCH (08:49)
--- NOTE | 2017-04-13 11:26 | HOSPPROG ---
Hospitalist Progress Note Assessment/Plan: 82-year-old admitted with increased left lower extremity pain and swelling. Diagnosed with PE and pulmonary embolism on admission. She does have history of previous clot last year. # extensive left lower extremity DVT and pulmonary embolism * Patient's family does not want any interventions and focus on comfort * Continue Xarelto for treatment * Skilled rehab # dementia: Progressive weakness # depression: Trial of SSRIs in the past recently started on Remeron this admission # deconditioning: Plan will be for the patient to go to rehab with palliative care by Marie #DVT ppx: Xarelto #Goals: daughter wants comfort/quality measures. No procedures. [facility] palliative care outpatient. #Disp: SNF pending, can DC Saturday if accepted Subjective: Patient new to co and chart reviewed. Objective: Vital Signs Temp Pulse Resp BP Pulse Ox 36.6 C 91 23 H 103/55 L 94 04/13/17 04:00 04/13/17 04:00 04/13/17 04:00 04/13/17 04:00 04/13/17 04:00 Laboratory Results 04/12/17 04:42 04/12/17 04:42 04/12/17 04/13/17 04/14/17 05:59 05:59 05:59 Intake Total 475 1550 Balance 475 1550 PT 14.8 SEC (12.0-15.0) 04/10/17 17:00 INR 1.17 (0.83-1.16) H 04/10/17 17:00 - Physical Exam Constitutional: no apparent distress, chronically ill appearing Eyes: PERRL, EOMI Ears, Nose, Mouth, Throat: moist mucous membranes Cardiovascular: regular rate and rhythym Respiratory: no respiratory distress, clear to auscultation Gastrointestinal: soft, non-tender abdomen Genitourinary: no bladder fullness Skin: warm, normal color Musculoskeletal: full muscle strength Neurologic: No AAOx3 Psychiatric: interacting appropriately ICD10 Worksheet Patient Problems: Problems Problem Status Onset Pulmonary embolism Acute DVT (deep venous thrombosis) Acute
--- NOTE | 2017-04-13 15:54 | ASMTCMCOM ---
CM Note CM Note Notes: Today Heydi called daughter Maddie to see if the family had made a decision on which SNF Pt. would d/c to. Maddie discussed plans with her and Heydi called later to get answer. Maddie would like Pt. to go to [facility] with [facility]. Lewisr called both [facility] and [facility] to confirm family's choice. Both are ready to receive Pt. Plan for d/c tomorrow (Diana) to [facility] with [facility]. [facility] to call Maddie to coordinate a time to meet. Date Signed: 04/13/2017 03:53 PM Electronically Signed By:Moira Alford LCSW
[2017-04-13] MEDS: LOPERAMIDE HCL 2 MG CAP PO PRN (19:47)
[2017-04-13] MEDS: MIRTAZAPINE 15 MG TAB PO SCH (19:49)
[2017-04-14 07:31] VITALS: RESP 16
[2017-04-14] MEDS: NEXIUM 20 MG PO SCH (09:15)
[2017-04-14] MEDS: [UNRECOGNIZED DRUG - OTHER] PO SCH (09:15)
[2017-04-14] MEDS: RIVAROXABAN 15 MG TAB PO SCH (09:15)
[2017-04-14] MEDS: LEVOTHYROXINE 75 MCG TAB PO SCH (09:15)
[2017-04-14] MEDS: SENNOSIDES/DOCUSATE SODIUM TAB PO SCH (09:15)
[2017-04-14] MEDS: LOPERAMIDE HCL 2 MG CAP PO PRN (09:21)
--- NOTE | 2017-04-14 11:09 | PDIAF ---
- Diagnosis Diagnosis: dvt/pe, dementia Code Status: Do Not Resuscitate - Medication Management Discharge Medications: Medications to Continue on Transfer Esomeprazole Magnesium [Nexium] 20 mg PO DAILY 04/13/16 [Last Taken 04/10/17] Herbals/Supplements -Info Only 1 ea PO DAILY #0 09/11/16 [Last Taken 04/10/17] Levothyroxine [Synthroid 75 mcg (*)] 75 mcg PO DAILY06 #0 09/11/16 [Last Taken 04/10/17] Loperamide HCl [Imodium 2 mg (*)] 2 mg PO PRN PRN 04/12/17 [Last Taken Unknown] Acetaminophen [Tylenol 325mg (*)] 650 mg PO Q4HRS PRN tab 04/14/17 [Last Taken Unknown] Polyethylene Glycol 3350 [Miralax 17 gm (*)] 17 gm PO DAILY PRN pkt 04/14/17 [ Last Taken Unknown] Rivaroxaban [Xarelto 15mg (*)] 15 mg PO BIDMEAL tab 04/14/17 [Last Taken Unknown] Sennosides/Docusate Sodium [Senokot-S] 1 - 2 tab PO BID tab 04/14/17 [Last Taken Unknown] Discharge Medications: Refer to the Discharge Home Medication list for PRN reason. - Orders Services needed: Registered Nurse, Certified Gospel Worker, Master Drawing Hand , Physical Therapy, Occupational Therapy Diet Recommendation: no restrictions on diet Diet Texture: Regular Texture Diet - Follow Up Care Current Providers and Referrals: Portillo Heard MD [Primary Care Provider] - As per Instructions
--- NOTE | 2017-04-14 11:30 | GDS ---
[f rep st] DISCHARGE SUMMARY DIAGNOSES: 1. Deep vein thrombosis and pulmonary embolism, acute. 2. Dementia. 3. Depression. 4. Deconditioning. CONSULTATION: Palliative care. PROCEDURES DONE: Chest and thoracic CT angiogram and lower extremity Doppler notable for PE and DVT. HOSPITAL COURSE: The patient is an 82-year-old with dementia who was admitted with shortness of janiya th and leg swelling. Evaluation revealed a DVT and PE. She was placed on Xarelto for management of this. The daughter and patient met with palliative care while in the hospital and at this time they would like to proceed with palliative care at a [facility] facility and would not like to do fur ther invasive testing. She will be discharged on ongoing Xarelto to treat her blood clots and pallia tive care will be there to ensure she has ongoing comfort measures as well. CONDITION ON DISCHARGE: Good. Vital signs stable. She is alert, pleasant, and not in pain. DISCHARGE MEDICATIONS: Please see discharge medication form. FOLLOWUP: She will be discharged to [facility] with palliative care by Marie. Total time spent with patient on day of discharge and coordination of care is 35 minutes. /[id number]/MODL
[2017-04-14 11:54] VITALS: BP 115/63; PULSE 95; TEMP 98.2; O2SAT 91
--- NOTE | 2017-04-14 18:13 | ASMTCMCOM ---
CM Note CM Note Notes: Dc order received. Spoke with pt & her daughter Maddie; agreeable to dc poc. Alerted Savannah, at [facility]. Dc paperwork faxed; confirmed received. Transport arranged. Updated RN. Alerted [facility]; informed pt has not made up her mind if she will use them yet; [facility] to follow up; pt has other info on Pallative Care agencies. No other needs at this time. Date Signed: 04/14/2017 06:13 PM Electronically Signed By:Sowmya Bueno RN
--- NOTE | 2017-04-14 18:16 | ASDISCHSUM ---
Discharge Information Plan Status:SNF Medically Cleared to Leave:04/13/2017 Discharge Date:04/14/2017 12:57 PM CM D/C Disposition:Shelter Facility ADT D/C Disposition:Shelter Facility Projected Discharge Date:04/14/2017 01:00 PM Transportation at D/C:Wheelchair Van Discharge Delay Reason: Follow-Up Date:04/14/2017 01:00 PM Discharge Slot: Final Diagnosis: Placement Information Referral Type:*Senior Care/SNF Referral ID:[id number] Provider Name:[facility] Address 1:[address] Address 2: City:[place] Selection Factors: State:[place] Referral Type:*Hospice Referral ID:[id number] Provider Name: Address 1: Phone Number: Address 2: Fax Number: City: Selection Factors: State: Patient Contact Information Contact Name:NORBERTO Relationship:Daughter Address:[address] City:[place] Alternate Phone: State/Zip Code:[place] [address] Email: Financial Information Financial Class:Medicare Primary Plan Desc:MEDICARE INPATIENT Primary Plan Number:[id number] Secondary Plan Desc:DAVIS RULE Secondary Plan Number:[id number] Assessment Information [facility] Progress Note CM Note CM Note Notes: Met with pt's dtr Dorothy to discuss DC plan. Pt currently lives in a small attached apt at dtr's home. PT and OT are recommending SNF. Currently patient is OBS. Pt will need to be inpt for 3 days for Medicare to pay. Dtr will be choosing between [facility] and [facility]. Referral faxed to both. CM will continue to follow. Date Signed: 04/11/2017 03:18 PM Electronically Signed By:Desiree Boss LCSW [facility] CM Progress Note CM Note CM Note Notes: Patient chart reviewed. She has been accepted to [facility] as well as [facility] and per her daughter they would like to get [facility] involved as well. Per therapy notes she is recommended to go to SNF for rehab. She was made inpatient last night and will be ready for transfer Saturday if she is medically cleared to go. CM to follow Date Signed: 04/12/2017 03:42 PM Electronically Signed By:Jyothi Oliva RN [facility] CM Progress Note CM Note CM Note Notes: Today Heydi called daughter Maddie to see if the family had made a decision on which SNF Pt. would d/c to. Maddie discussed plans with her and Heydi called later to get answer. Maddie would like Pt. to go to [facility] with [facility]. Heydi called both [facility] and [facility] to confirm family's choice. Both are ready to receive Pt. Plan for d/c tomorrow (Diana) to [facility]. [facility] to coordinate a time to meet. Date Signed: 04/13/2017 03:53 PM Electronically Signed By:Moira Alford LCSW [facility] CM Progress Note CM Note CM Note Notes: Dc order received. Spoke with pt & her daughter Maddie; agreeable to dc poc. Alerted Savannah at [facility]. Dc paperwork faxed; confirmed received. Transport arranged. Updated RN. Alerted [facility]; informed pt has not made up her mind if she will use them yet; [facility] to follow up; pt has other info on Pallative Care agencies. No other needs at this time. Date Signed: 04/14/2017 06:13 PM Electronically Signed By:Sowmya Bueno RN Intervention Information Intervention Type:*LIANET-Signed Date of Service:04/11/2017 10:29 AM Patient Type:Observation Staff Member:Licha Christie Hours: Discipline: Severity: Comment:
== END 2017-04-14 12:57 | DRG 299 ==
LOC: CED 16:02 → EDSTATUS 18:00 → CEDHOLD 18:47 → F1N 21:21 → OBSVTOIN 04-11 15:39
PROVIDERS: ADMIT Internal Medicine; ATTEND Internal Medicine
DX: I82.4Z1 Acute embolism and thrombosis of unspecified deep veins of right distal lower extremity (principal); I26.99 Other pulmonary embolism without acute cor pulmonale; E03.9 Hypothyroidism, unspecified; F03.90 Unspecified dementia, unspecified severity, without behavioral disturbance, psychotic disturbance, mood disturbance, and anxiety; K21.9 Gastro-esophageal reflux disease without esophagitis; F32.9 Major depressive disorder, single episode, unspecified; I12.9 Hypertensive chronic kidney disease with stage 1 through stage 4 chronic kidney disease, or unspecified chronic kidney disease; N18.3 Chronic kidney disease, stage 3 (moderate); Z51.5 Encounter for palliative care; Z87.891 Personal history of nicotine dependence
CPT/HCPCS: 71275-PO; 80048-PO; 84484-PO; 85025-PO; 85610-PO; 85730-PO; 93971-PO; 97116-GP; 97161-GP; 97166-GO; 97530-GP; 97535-GO; G0378; G0463-PO; G8978-GP-CK; G8979-GP-CI; G8987-GO-CK; G8988-GO-CI; J1650; Q9967

== ENCOUNTER 2017-07-09 11:26 | Emergency (ER) | payer OTHER ==
--- NOTE | 2017-07-09 11:51 | EDPHY ---
HPI/HX/ROS/PE/MDM Narrative: CHIEF COMPLAINT: Altered mental status HISTORY OF PRESENT ILLNESS: The patient is an anticoagulated 82 y/o female with a history of dementia found with an altered mental status by her grandson. Last night she was nauseated and vomited once. This morning, she was sitting on the kitchen stool around 10 o'clock in the morning. She was found by her grandson, slumped in her chair in such a way she may have hit her head. He helped her into a chair but she slumped over and was not at her baseline mental status. She denies any other associated injuries or symptoms. Patient and daughter deny fevers the the patient does report feeling cold. They deny any complaints of chest pain or shortness of breath. No history of palpitations. No seizure history. No diarrhea. No lightheadedness. REVIEW OF SYSTEMS: Aside from elements discussed in the HPI, a comprehensive 10-point review of systems was reviewed and is negative. PAST MEDICAL HISTORY: Dementia, hypothyroid, blood clot in april SOCIAL HISTORY: Lives with daughter, retired, nonsmoker. DNR per daughter. VITAL SIGNS: Reviewed by me GENERAL: Pleasant elderly female. Reports she feels cold. Slightly tachypneic. (Daughter reports this is chronic.) HEENT: Atraumatic. No abrasions or lacerations. Eyes: No icterus, no injection. Mouth: moist mucous membranes. No erythema or lesions. Neck: supple with no adenopathy. No tenderness to palpation. Initially arrived in a cervical collar which was removed. LUNGS: Clear to auscultation bilaterally, no wheezes, rhonchi or rales. CARDIAC: Regular rate and rhythm, no rubs, murmurs or gallops. ABDOMEN: Soft, nontender, nondistended, bowel sounds normal. BACK: No CVA tenderness. EXTREMITIES: No trauma. No edema. Range of motion is normal throughout. NEURO: Alert and oriented, grossly nonfocal. SKIN: Warm and dry, no rash. PSYCHIATRIC: Normal mentation, no agitation. ED Course: 12-LEAD EKG: Please see the full report in [facility]. My interpretation: Sinus rhythm, no acute ischemic changes. The patient presents with an episode of altered mental status and possible head injury. She was feeling nauseated last night and vomited. Her last memory this morning is sitting in the kitchen. She was found by her grandson slumped on the counter, where she may have hit her head. She continued to be below baseline mental status. Plan for CBC, basic metabolic panel, liver, lipase, troponin, UA , EKG, chest X-ray, head and cervical spine CT. 2:30 PM- CT, X-ray, EKG, and labs including troponin are largely unremarkable. [place] [id number]. Chest x-ray demonstrates no pneumonia. 2:45 PM-UA shows a probable UTI. She is going home with a prescription for Keflex. Urine will be cultured. The patient agrees with this course of action. She seems brighter and more alert after IV hydration. 1st dose of Keflex given in the emergency department. Daughter understands reasons to return. MDM: After the history was obtained and physical exam performed, the following differential for the patient's present complaint was considered included but was not limited to hypoglycemia, electrolyte disturbances, intracranial hemorrhage, infection, cardiac event, stroke, or TIA. - Data Points Imaging Results: Imaging Impressions Chest X-Ray 07/09/17 11:54 Impression: 1. No acute intrathoracic pathology. 2. Stable mild L1 superior endplate fracture. 3. Small hiatal hernia. Head CT 07/09/17 11:54 Impression: 1. Mild atrophy. 2. No acute hemorrhage, hydrocephalus, or mass effect. 3. Cerebrovascular atherosclerosis. 4. No definite acute infarct. 5. Moderate microvascular ischemic gliosis. 6. Consider MRI of the brain, if there is continued clinical concern. Findings and recommendations discussed with Emergency Department physician, Gretel Ann MD, at 1241 hour, 07/09/2017. Final report concurs with initial preliminary interpretation. Cervical Spine CT 07/09/17 11:55 Impression: 1. No definite fracture. 2. Multilevel severe degenerative disk disease, worst from C4-C5 through C6-C7 with dorsal disk/osteophyte complexes and bilateral uncovertebral osteophytes resulting in mild to moderate central canal stenosis, worse at C5-C6 and C6-C7, and variable bilateral neural foraminal stenosis, worse on the left at C4-C5 and C5-C6. 3.If there is persistent pain or neurological deficit, recommend MR cervical spine and consider flexion and extension views, if clinically indicated. Findings and recommendations discussed with Emergency Department physician, Gretel Ann MD, at 1245 hour, 07/09/2017. Final report concurs with initial preliminary interpretation. Imaging: Discussed imaging studies w/ call person Radiologist, I viewed and interpreted images myself Laboratory Results: Laboratory Results 07/09/17 11:30 07/09/17 11:30 07/09/17 07/09/17 07/09/17 14:10 11:30 11:30 WBC 14.47 10^3/uL H 10^3/uL (3.80-9.50) RBC 5.37 10^6/uL H 10^6/uL (4.18-5.33) Hgb 14.0 g/dL g/dL (12.6-16.3) Hct 44.1 % % (38.0-47.0) MCV 82.1 fL fL (81.5-99.8) MCH 26.1 pg L pg (27.9-34.1) MCHC 31.7 g/dL L g/dL (32.4-36.7) RDW 15.0 % % (11.5-15.2) Plt Count 387 10^3/uL 10^3/uL (150-400) MPV 9.9 fL fL (8.7-11.7) Neut % (Auto) 57.9 % % (39.3-74.2) Lymph % (Auto) 33.2 % % (15.0-45.0) [place] % (Auto) 6.8 % % (4.5-13.0) Eos % (Auto) 1.4 % % (0.6-7.6) Baso % (Auto) 0.5 % % (0.3-1.7) Nucleat RBC Rel Count 0.0 % % (0.0-0.2) Absolute Neuts (auto) 8.38 10^3/uL H 10^3/uL (1.70-6.50) Absolute Lymphs (auto) 4.80 10^3/uL H 10^3/uL (1.00-3.00) Absolute Monos (auto) 0.98 10^3/uL H 10^3/uL (0.30-0.80) Absolute Eos (auto) 0.20 10^3/uL 10^3/uL (0.03-0.40) Absolute Basos (auto) 0.07 10^3/uL 10^3/uL (0.02-0.10) Absolute Nucleated RBC 0.00 10^3/uL 10^3/uL (0-0.01) Immature Gran % 0.2 % % (0.0-1.1) Immature Gran # 0.03 10^3/uL 10^3/uL (0.00-0.10) RBC/WBC/PLT Morphology TNP Platelet Estimate TNP Sodium 140 mEq/L mEq/L (135-145) Potassium 4.8 mEq/L mEq/L (3.3-5.0) Chloride 103 mEq/L mEq/L (97-110) Carbon Dioxide 21 mEq/l L mEq/l (22-31) Anion Gap 16 mEq/L mEq/L (8-16) BUN 20 mg/dL mg/dL (7-23) Creatinine 1.3 mg/dL H mg/dL (0.6-1.0) Estimated GFR 39 Glucose 171 mg/dL H mg/dL (70-100) Calcium 9.7 mg/dL mg/dL (8.5-10.4) Total Bilirubin 0.7 mg/dL mg/dL (0.1-1.4) Conjugated Bilirubin 0.5 mg/dL mg/dL (0.0-0.5) Unconjugated Bilirubin 0.2 mg/dL mg/dL (0.0-1.1) AST 24 IU/L IU/L (14-46) ALT 24 IU/L IU/L (9-52) Alkaline Phosphatase 98 IU/L IU/L (38-126) Troponin I < 0.012 ng/mL ng/mL (0.000-0.034) Total Protein 7.6 g/dL g/dL (6.3-8.2) Albumin 4.1 g/dL g/dL (3.5-5.0) Lipase 109 IU/L IU/L (23-300) Urine Color YELLOW Urine Appearance HAZY Urine pH 5.0 (5.0-7.5) Ur Specific Percival 1.017 (1.002-1.030) Urine Protein NEGATIVE (NEGATIVE) Urine Ketones NEGATIVE (NEGATIVE) Urine Blood NEGATIVE (NEGATIVE) Urine Nitrate POSITIVE H (NEGATIVE) Urine Bilirubin NEGATIVE (NEGATIVE) Urine Urobilinogen NEGATIVE EU EU (0.2-1.0) Ur Leukocyte Esterase NEGATIVE (NEGATIVE) Urine RBC 1-3 /hpf /hpf (0-3) Urine WBC 5-10 /hpf H /hpf (0-3) Ur Epithelial Cells NONE SEEN /lpf /lpf (NONE-1+) Urine Bacteria 3+ /hpf H /hpf (NONE SEEN) Urine Mucus TRACE /lpf /lpf (NONE-1+) Urine Glucose NEGATIVE (NEGATIVE) Medications Given: Discontinued Medications Cephalexin HCl (Keflex) 500 mg PO EDNOW ONE PRN Reason: Protocol Stop: 07/09/17 14:43 Last Admin: 07/09/17 14:50 Dose: 500 mg General Time Seen by Provider: 07/09/17 11:30 Initial Vital Signs: Initial Vital Signs Temperature (C) 36.1 C 07/09/17 11:34 Heart Rate 72 07/09/17 11:34 Respiratory Rate 18 07/09/17 11:34 Blood Pressure 126/85 H 07/09/17 11:34 O2 Sat (%) 97 07/09/17 11:34 O2 Delivery Mode Room Air O2 (L/minute) 2 Allergies/Adverse Reactions: No Known Allergies Allergy (Verified 04/10/17 16:21) Home Medications: Medication Instructions Recorded Esomeprazole Magnesium [Nexium] 20 mg PO DAILY 04/13/16 Herbals/Supplements -Info Only 1 ea PO DAILY #0 09/11/16 Levothyroxine [Synthroid 75 mcg 75 mcg PO DAILY06 #0 09/11/16 (*)] Loperamide HCl [Imodium 2 mg (*)] 2 mg PO PRN PRN 04/12/17 Acetaminophen [Tylenol 325mg (*)] 650 mg PO Q4HRS PRN tab 04/14/17 Polyethylene Glycol 3350 [Miralax 17 gm PO DAILY PRN pkt 04/14/17 17 gm (*)] Rivaroxaban [Xarelto 15mg (*)] 15 mg PO BIDMEAL tab 04/14/17 Sennosides/Docusate Sodium 1 - 2 tab PO BID tab 04/14/17 [Senokot-S] Cephalexin [Keflex (RX)] 500 mg PO TID 7 Days cap 07/09/17 Ondansetron Odt [Zofran Odt 4 mg 4 mg PO Q6 PRN #8 tab 07/09/17 (RX)] Departure - Departure Disposition: Home, Routine, Self-Care Clinical Impression: Confusion Urinary tract infection Qualifiers: Urinary tract infection type: site unspecified Hematuria presence: without hematuria Qualified Code(s): N39.0 - Urinary tract infection, site not specified Condition: Good Instructions: Acute Delirium (ED), Urinary Tract Infection in Older Adults (ED) Additional Instructions: Please take antibiotics as directed. Keflex 500 mg by mouth 3 times a day for the next 7 days. The urine has been sent for culture. If her urinary tract infection is not sensitive to Keflex, we will contact her. Referrals: Patient,NotPresent [Unknown] - As per Instructions Portillo Heard MD [Medical Doctor] - As per Instructions Prescriptions: Cephalexin [Keflex (RX)] 500 mg PO TID 7 Days cap Ondansetron Odt [Zofran Odt 4 mg (RX)] 4 mg PO Q6 PRN #8 tab PRN Reason: Nausea Report Scribed for: Gretel Ann Report Scribed by: Leticia Ko Date of Report: 07/09/17 Time of Report: 14:41 Physician Review and Approval Statement: Portions of this note were transcribed by a medical staff services coordinator. I personally performed a history, physical exam, medical decision making, and confirmed accuracy of information the transcribed note.
[2017-07-09 12:01] LABS: PLATELET COUNT 387 10^3/uL (150-400)
--- NOTE | 2017-07-09 12:16 | CPEKG ---
Heart Rate: 70 RR Interval: 857 P-R Interval: 184 QRSD Interval: 78 QT Interval: 416 QTC Interval: 449 P Lutz: 59 QRS Lutz: 85 T Wave Lutz: 61 EKG Severity - ABNORMAL ECG - EKG Impression: SINUS RHYTHM EKG Impression: PROBABLE ANTEROSEPTAL INFARCT, AGE INDETERM Electronically Signed By: Gretel Ann 09-Jul-2017 15:19:18
[2017-07-09] MEDS ORDERED: CEPHALEXIN 500 MG CAP PO ONE (14:42)
[2017-07-09 14:52] VITALS: BP 117/66
== END 2017-07-09 15:02 | disposition home or self-care (01) ==
LOC: EDUNIT#
DX: R41.0 Disorientation, unspecified (principal); N39.0 Urinary tract infection, site not specified; B96.20 Unspecified Escherichia coli [E. coli] as the cause of diseases classified elsewhere; Z79.01 Long term (current) use of anticoagulants

== ENCOUNTER 2017-07-16 13:16 | Inpatient (IN) | payer OTHER ==
--- NOTE | 2017-07-16 14:09 | EDPHY ---
H & P Smoking Status: Former smoker Time Seen by Provider: 07/16/17 14:06 HPI/ROS: Chief complaint. Can't walk HPI. 82-year-old female with decreased ability to walk the last 5 days. She was seen in our emergency department July 09 and ultimately a diagnosis of UTI was made and the patient was given a prescription for Keflex. After taking the Keflex patient was improved for 2 days. During that workup she had a head CT which showed atrophy. Her daughter notes that again she was better for 2 days and then the past 5 days the patient has been less mobile, more confused and generally weak. Decreased oral intake. Really has a hard time walking. Her arms are fine. The patient tells me she has no pain in her chest. No difficulty breathing. No abdominal pain. No back pain. Maybe subjective fever. Patient is concerned that she continues to have a UTI. ROS Constitutional. Generalized weakness and possible subjective fever Eyes. no problems with vision ENT. no sore throat, no nasal drainage Cardiovascular. no chest pain Respiratory. no shortness of breath, no cough Abdominal. No abdominal pain or vomiting but decreased oral intake . no problems urinating MS. no calf pain/swelling, no neck/back pain, no joint pain Skin. no rash Lymph. no swollen glands Neuro. Decreased ability to walk (Dwain Villasenor) Past Medical/Surgical History: Past medical history is significant for GERD, hypertension, laminectomy, a PE/ DVT, UTI, dementia (Dwain Villasenor) Social History: , nonsmoker, lives with daughter (JacklynDwain lUloa) Physical Exam: General Appearance: Alert pleasant well-developed female mild distress vital signs are stay Eyes: Pupils equal and round no pallor or injection. ENT, Mouth: Mucous membranes are moist. Respiratory: There are no retractions, lungs are clear to auscultation. Cardiovascular: Regular rate and rhythm. Gastrointestinal: Abdomen is soft and nontender, no masses, bowel sounds normal. Neurological: Awake and alert, sensory and motor exams grossly normal. Speech is normal. Cranial nerves intact. No pronator drift. Slight decreased strength left great toe the an ability to raise the leg off the bed. Right- sided 5/5 strength, left side 4/ 5 Skin: Warm and dry, no rashes. Musculoskeletal: Neck is supple nontender. Extremities symmetrical, full range of motion. Psychiatric: Patient is oriented X 3, there is no agitation. (Dwain Villasenor) Constitutional: Initial Vital Signs Temperature (C) 36.9 C 07/16/17 13:20 Heart Rate 99 07/16/17 13:20 Respiratory Rate 18 07/16/17 13:20 Blood Pressure 128/66 H 07/16/17 13:20 O2 Sat (%) 95 07/16/17 13:20 O2 Delivery Mode Room Air Allergies/Adverse Reactions: No Known Allergies Allergy (Verified 07/16/17 13:19) Home Medications: Medication Instructions Recorded Esomeprazole Magnesium [Nexium] 20 mg PO DAILY 04/13/16 Herbals/Supplements -Info Only 1 ea PO DAILY #0 09/11/16 Levothyroxine [Synthroid 75 mcg 75 mcg PO DAILY06 #0 09/11/16 (*)] Loperamide HCl [Imodium 2 mg (*)] 2 mg PO PRN PRN 04/12/17 Acetaminophen [Tylenol 325mg (*)] 650 mg PO Q4HRS PRN tab 04/14/17 Polyethylene Glycol 3350 [Miralax 17 gm PO DAILY PRN pkt 04/14/17 17 gm (*)] Rivaroxaban [Xarelto 15mg (*)] 15 mg PO BIDMEAL tab 04/14/17 Sennosides/Docusate Sodium 1 - 2 tab PO BID tab 04/14/17 [Senokot-S] Cephalexin [Keflex (RX)] 500 mg PO TID 7 Days cap 07/09/17 Ondansetron Odt [Zofran Odt 4 mg 4 mg PO Q6 PRN #8 tab 07/09/17 (RX)] Medical Decision Making - Diagnostics EKG Interpretation: EKG interpreted by me shows normal sinus rhythm normal interval and axis. QRS is otherwise normal. No significant ST elevation or depression. No arrhythmia. The rate is 87 (Dwain Villasenor) Imaging Results: Imaging Impressions Chest X-Ray 07/16/17 14:27 Impression: Possible left lower lung zone patchy pneumonia. Chest x-ray interpreted my by me shows probable left lower lobe infiltrate ( Dwain Villasenor) Procedures: IV normal saline (Dwain Villasenor) ED Course/Re-evaluation: Septic workup and blood cultures IV Levaquin (Jacklyn,Dwain S) 3:50 p.m. The patient does not meet criteria for severe sepsis. Will admit for pneumonia. Antibiotics and fluids have been ordered. Have paged hospital service. 3:51 p.m. I spoke with Camila Pruett who will admit to the medical service. ( Junaid Laboy) Care Turn Over: Dr. Laboy at 3:00 p.m. (Dwain Villasenor) - Data Points Laboratory Results: Laboratory Results 07/16/17 15:01 07/16/17 15:01 07/16/17 07/16/17 07/16/17 15:01 15:01 15:01 WBC RBC Hgb Hct MCV MCH MCHC RDW Plt Count MPV Neut % (Auto) Lymph % (Auto) Moore % (Auto) Eos % (Auto) Baso % (Auto) Nucleat RBC Rel Count Absolute Neuts (auto) Absolute Lymphs (auto) Absolute Monos (auto) Absolute Eos (auto) Absolute Basos (auto) Absolute Nucleated RBC Immature Gran % Immature Gran # PT 15.7 SEC H SEC (12.0-15.0) INR 1.23 H (0.83-1.16) APTT 25.3 SEC SEC (23.0-38.0) VBG Lactic Acid 1.9 mmol/L mmol/L (0.7-2.1) Sodium 139 mEq/L mEq/L (135-145) Potassium 4.5 mEq/L mEq/L (3.3-5.0) Chloride 104 mEq/L mEq/L (97-110) Carbon Dioxide 24 mEq/l mEq/l (22-31) Anion Gap 11 mEq/L mEq/L (8-16) BUN 19 mg/dL mg/dL (7-23) Creatinine 1.0 mg/dL mg/dL (0.6-1.0) Estimated GFR 53 Glucose 116 mg/dL H mg/dL (70-100) Calcium 8.7 mg/dL mg/dL (8.5-10.4) Total Bilirubin 0.6 mg/dL mg/dL (0.1-1.4) Conjugated Bilirubin 0.5 mg/dL mg/dL (0.0-0.5) Unconjugated Bilirubin 0.1 mg/dL mg/dL (0.0-1.1) AST 19 IU/L IU/L (14-46) ALT 23 IU/L IU/L (9-52) Alkaline Phosphatase 74 IU/L IU/L (38-126) Total Protein 6.5 g/dL g/dL (6.3-8.2) Albumin 3.4 g/dL L g/dL (3.5-5.0) 07/16/17 15:01 WBC 11.10 10^3/uL H 10^3/uL (3.80-9.50) RBC 4.61 10^6/uL 10^6/uL (4.18-5.33) Hgb 12.1 g/dL L g/dL (12.6-16.3) Hct 38.0 % % (38.0-47.0) MCV 82.4 fL fL (81.5-99.8) MCH 26.2 pg L pg (27.9-34.1) MCHC 31.8 g/dL L g/dL (32.4-36.7) RDW 14.8 % % (11.5-15.2) Plt Count 306 10^3/uL 10^3/uL (150-400) MPV 9.6 fL fL (8.7-11.7) Neut % (Auto) 66.7 % % (39.3-74.2) Lymph % (Auto) 23.2 % % (15.0-45.0) Moore % (Auto) 8.8 % % (4.5-13.0) Eos % (Auto) 0.6 % % (0.6-7.6) Baso % (Auto) 0.4 % % (0.3-1.7) Nucleat RBC Rel Count 0.0 % % (0.0-0.2) Absolute Neuts (auto) 7.41 10^3/uL H 10^3/uL (1.70-6.50) Absolute Lymphs (auto) 2.57 10^3/uL 10^3/uL (1.00-3.00) Absolute Monos (auto) 0.98 10^3/uL H 10^3/uL (0.30-0.80) Absolute Eos (auto) 0.07 10^3/uL 10^3/uL (0.03-0.40) Absolute Basos (auto) 0.04 10^3/uL 10^3/uL (0.02-0.10) Absolute Nucleated RBC 0.00 10^3/uL 10^3/uL (0-0.01) Immature Gran % 0.3 % % (0.0-1.1) Immature Gran # 0.03 10^3/uL 10^3/uL (0.00-0.10) PT INR APTT VBG Lactic Acid Sodium Potassium Chloride Carbon Dioxide Anion Gap BUN Creatinine Estimated GFR Glucose Calcium Total Bilirubin Conjugated Bilirubin Unconjugated Bilirubin AST ALT Alkaline Phosphatase Total Protein Albumin Departure - Departure Disposition: [facility] Inpatient Acute Clinical Impression: Left lower lobe pneumonia Condition: Fair Referrals: Portillo Heard MD [Primary Care Provider] - As per Instructions
[2017-07-16] MEDS ORDERED: NS 1,000 ML IV ONE (14:26)
--- NOTE | 2017-07-16 14:50 | CPEKG ---
Heart Rate: 87 RR Interval: 690 P-R Interval: 168 QRSD Interval: 74 QT Interval: 364 QTC Interval: 438 P Sylvia: 31 QRS Sylvia: 81 T Wave Sylvia: 53 EKG Severity - BORDERLINE ECG - EKG Impression: SINUS RHYTHM EKG Impression: BORDERLINE RIGHT AXIS DEVIATION EKG Impression: LOW VOLTAGE THROUGHOUT EKG Impression: BORDERLINE R WAVE PROGRESSION, ANTERIOR LEADS EKG Impression: COMPARED WITH 07/09/2018 NO SIGNIFICANT CHANGE Electronically Signed By: Marybel Huber 18-Jul-2017 08:34:30
[2017-07-16 15:16] LABS: PLATELET COUNT 306 10^3/uL (150-400)
[2017-07-16 15:28] LABS: INR 1.23 (0.83-1.16); PROTIME(PATIENT) 15.7 SEC (12.0-15.0)
[2017-07-16] MEDS ORDERED: LOPERAMIDE HCL 2 MG CAP PO PRN (16:52)
[2017-07-16] MEDS ORDERED: ACETAMINOPHEN 325 MG TAB PO PRN (16:55)
[2017-07-16] MEDS ORDERED: ONDANSETRON 4 MG/2 ML VIAL IVP PRN (16:55)
--- NOTE | 2017-07-16 18:40 | GHP ---
[f rep st] HISTORY AND PHYSICAL DATE OF ADMISSION: 07/16/2017 CHIEF COMPLAINT: Weakness. HISTORY: The patient is an 82-year-old female who has gotten progressively weaker, very severe for t he last 2 days. Her daughter called 911 on July 09 when she collapsed, and in the field had a systo lic blood pressure of 70. She was seen in the emergency room and diagnosed with a urinary tract infe ction and started on Keflex. She was discharged from the ER. She initially got better for a couple days, but is now getting worse again. She does have baseline dementia, but her confusion is much wor se than her baseline, currently thinking Felipe Lindsay is in office and it is 1935. 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 Her weakness is predominantly lower extremity. Daughter notices that she seems to move her legs just fine when she is lying down, but then when she tries to get up they just collapse out from under her . Her left is weaker than her right. She can no longer walk with her walker. Her oral intake has b een very poor, and she is taking only small bites. She is sleeping 18-20 hours per day. They are ge tting her around in a wheelchair. There has been no fever or cough. There has been no back pain. S he has had worsening stool and urine incontinence for the last 6 months. She just lacks sensation do wn there or urge to go. She did not have any symptoms of urinary tract infection. PAST MEDICAL HISTORY: 1. Recently diagnosed pulmonary embolus and DVT. 2. Dementia. 3. GERD. 4. Hypothyroidism. MEDICATIONS: Please see computer record for full detailed list. ALLERGIES: No known drug allergies. SOCIAL HISTORY: Quit smoking at age 44. Drank wine when she was younger, but not anything currently . She lives with her daughter. She is a retired RN. Her son-in-law, whom she lives with, is a pain management orthopedic surgeon. COR status is DNR. REVIEW OF SYSTEMS: Complete review of systems is obtained. Review of systems negative for constitut ional, HEENT, GI, pulmonary, cardiovascular, , hematology, skin, muscular, endocrine, psych, except for positives as in HPI. FAMILY HISTORY: Reviewed, noncontributory to presenting complaint. PHYSICAL EXAMINATION: GENERAL: Well-developed, well-nourished female, in no acute distress. VITAL SIGNS: Temperature is 36.9, pulse 99, blood pressure 128/66, saturating 95% on room air. EYES: Nor mal conjunctivae. Pupils reactive to light. ENT: Normal ears and nose. Hearing intact. Normal li ps and teeth. Oropharynx moist. NECK: Trachea midline. No thyromegaly. CHEST: . LUNG S: Clear to auscultation bilaterally. CARDIOVASCULAR: Regular rhythm. No murmur. No lower extrem ity edema. ABDOMEN: Soft, nontender. No hepatosplenomegaly. SKIN: Warm, dry, intact. No rash. MUSCULOSKELETAL: No cyanosis or clubbing. Strength is reduced 4+/5. Left upper and left lower extr emities compared to the right. NEUROLOGICAL: Cranial nerves: She does have a subtle left facial dr oop, but tongue is midline. Normal sensation to light touch. PSYCHIATRIC: Alert, awake, alert, ple asant, cooperative, but confused. Not contributing to history and physical. Poor memory, poor judgm ent insight. LABORATORY DATA: White count 11.0, hematocrit 38.0, platelets 306. Sodium 139, potassium 4.5, chlor franky 104, bicarb 25, BUN 19, creatinine 1.0, glucose 116, lactate 1.9. LFTs are negative. INR is 1.2 3. EKG viewed by me. My personal interpretation is normal sinus rhythm, no ST-T wave changes. Chest x-ray shows a possible infiltrate, very subtle left lower lobe. I have spoken with Dr. Laboy who took a sign-out from Dr. Villasenor, and they felt the patient had pn eumonia, gave a dose of IV Levaquin. ASSESSMENT/PLAN: 1. Metabolic encephalopathy. The source of her worsening confusion is not clear. Emergency Room th ought she had pneumonia and give her a dose of Levaquin, although I am not convinced of the pneumonia diagnosis as she lacks fever, leukocytosis, cough or anything else going for pneumonia at this time. I will hold any further Levaquin treatment. Her urine culture from July 09 does in fact grow sign ificant E coli which is sensitive to Keflex. We will complete a 7-day course. My suspicion is she m ay be dehydrated as a result of this urinary tract infection and need additional IV fluid. 2. Possible left-sided weakness. Per examination the left side is a little weaker than the right. There is a possible slight left facial droop. Onset of this would have been approximately 48 hours a go. We will check an MRI of the brain and rule out stroke. 3. Recent pulmonary embolus. We will continue Xarelto. 4. Acute weakness. Her daughter is having trouble caring for her with this degree of debility. I s uspect she will need a usp facility. Will consult PT/OT. 5. Dementia. This is described as being relatively advanced, though she is quite functional and can ambulate normally when she is doing well. CODE STATUS: DNR. ADMISSION STATUS: 1. Will admit to inpatient. I anticipate greater than 2 midnights required given the extensive florence lity at presentation. 2. DVT prophylaxis. She is on Xarelto. /[id number]/MODL
[2017-07-16] MEDS: CEPHALEXIN 500 MG CAP PO SCH (22:38)
[2017-07-17] MEDS: NS 1,000 ML IV SCH (03:44)
[2017-07-17 05:00] LABS: PLATELET COUNT 284 10^3/uL (150-400)
[2017-07-17] MEDS: LEVOTHYROXINE 75 MCG TAB PO SCH (05:27)
[2017-07-17] MEDS: PANTOPRAZOLE SODIUM 40 MG TAB PO SCH (09:36)
[2017-07-17] MEDS: RIVAROXABAN 20 MG TAB PO SCH (09:36)
[2017-07-17] MEDS: VENLAFAXINE XR 37.5 MG CAP PO SCH (09:36)
[2017-07-17] MEDS: CEPHALEXIN 500 MG CAP PO SCH ×2 (09:36→17:03)
--- NOTE | 2017-07-17 12:16 | PDMN ---
Medical Necessity Medical necessity: est los>2mn for metabolic encephalopathy, likely r/t UTI, acute weakness, and possible L sided facial droop; comorbid dementia, recent PE and DVT; per order and H&P 07/16/17
--- NOTE | 2017-07-17 16:08 | HOSPPROG ---
Hospitalist Progress Note Assessment/Plan: 82 yo F with PMH of dementia admitted with increased confusion and weakness # acute metabolic encephalopathy: increased in the setting of likely pna/ possible uti. Improved overnight back to baseline currently. # generalized weakness: has been worsening in the setting of dementia and as above suspected infectious process as next. PT/OT involved. Patient likely needs higher level of care # pneumonia: CXR personally reviewed and notable for LLL PNA, started on levofloxacin and will continue for now, cultures with ngtd # pyuria: without urinary sxs but with increased confusion and weakness as above , started on levofloxacin which would likely cover as well, urine cxs pending # recent PE: continue xarelto # dementia: with progression over the last year and significantly more so over last several months, suspect she is no longer safe to be cared for at home # IP status Patient new to my care. Old records reviewed and summarized as above. Care plan reviewed with patients family present at bedside. Subjective: no significant overnight events, patient feeling better but still very weak, no longer confused Objective: Vital Signs Temp Pulse Resp BP Pulse Ox 36.6 C 78 16 107/67 96 07/17/17 15:59 07/17/17 15:59 07/17/17 15:59 07/17/17 15:59 07/17/17 15:59 Laboratory Results 07/17/17 04:30 07/16/17 07/17/17 07/18/17 05:59 05:59 05:59 Intake Total 1301 Output Total 450 Balance 851 PT 15.7 SEC (12.0-15.0) H 07/16/17 15:01 INR 1.23 (0.83-1.16) H 07/16/17 15:01 awake alert anicteric op clear rrr no mrg cta b soft nt nd no cce warm dry well perfused with e/o poor memory c/w dementia - Time Spent With Patient Time Spent with Patient: greater than 35 minutes Time Spent with Patient: Greater than 35 minutes spent on this patients care, greater than 50% of time spent counseling, educating, and coordinating care regarding the above mentioned plan. ICD10 Worksheet Patient Problems: Problems Problem Status Onset Pulmonary embolism Acute DVT (deep venous thrombosis) Acute Left lower lobe pneumonia Acute
[2017-07-18] MEDS: LEVOTHYROXINE 75 MCG TAB PO SCH (04:39)
[2017-07-18] MEDS: NS 1,000 ML IV SCH ×2 (04:39→16:19)
[2017-07-18] MEDS: PANTOPRAZOLE SODIUM 40 MG TAB PO SCH (09:15)
[2017-07-18] MEDS: VENLAFAXINE XR 37.5 MG CAP PO SCH (09:15)
[2017-07-18] MEDS: RIVAROXABAN 20 MG TAB PO SCH (09:15)
--- NOTE | 2017-07-18 14:35 | HOSPPROG ---
Hospitalist Progress Note Assessment/Plan: 82 yo F with PMH of dementia admitted with increased confusion and weakness and suspected overall FTT # acute metabolic encephalopathy: increased in the setting of likely pna/ possible uti. Initially improved but now again worsening, suspect component of delirium related to hospitalization etc. Discussed with family. # generalized weakness: has been worsening in the setting of dementia and as above suspected infectious process as next. PT/OT involved. Patient likely needs higher level of care as next # FTT: patient has not been eating, very weak and unable to ambulate on her own , discussed with patients daughter that this could be related to patient beginning to enter the dying stage of life though it may be a bit early to say for sure. She would like to discuss this with palliative and they have been consulted. Reviewed old data and has not had recent tsh/b12 level checked, will add on as well as random am cortisol # pneumonia: CXR personally reviewed and notable for LLL PNA, started on levofloxacin and will continue for now, cultures with ngtd. will get repeat cxr in am to see if interval change present # pyuria: without urinary sxs but with increased confusion and weakness as above , started on levofloxacin which would likely cover as well, urine cxs pending # recent PE: continue xarelto # dementia: with progression over the last year and significantly more so over last several months, suspect she is no longer safe to be cared for at home as above concern for FTT # IP status Care plan reviewed with patients family present at bedside. Subjective: no significant overnight events, patient is confused today but no complaints otherwise Objective: Vital Signs Temp Pulse Resp BP Pulse Ox 36.9 C 92 18 142/97 H 94 07/18/17 08:51 07/18/17 08:51 07/18/17 08:51 07/18/17 08:51 07/18/17 08:51 Laboratory Results 07/17/17 04:30 07/17/17 07/18/17 07/19/17 05:59 05:59 05:59 Intake Total 1301 2041 Output Total 450 1 Balance 851 2040 PT 15.7 SEC (12.0-15.0) H 07/16/17 15:01 INR 1.23 (0.83-1.16) H 07/16/17 15:01 awake alert anicteric op clear rrr no mrg cta b soft nt nd no cce warm dry well perfused with e/o poor memory c/w dementia - Time Spent With Patient Time Spent with Patient: greater than 35 minutes Time Spent with Patient: Greater than 35 minutes spent on this patients care, greater than 50% of time spent counseling, educating, and coordinating care regarding the above mentioned plan. ICD10 Worksheet Patient Problems: Problems Problem Status Onset Left lower lobe pneumonia Acute DVT (deep venous thrombosis) Acute Pulmonary embolism Acute
--- NOTE | 2017-07-18 15:05 | ASMTCMCOM ---
CM Note CM Note Notes: Pt admitted for weakness. She will need a SNF. Pt has been to [facility] in the past and is currently on the wait list for [facility] in [facility]. Refrrals sent ot [facility] and [facility]. PASRR completed. CM to follow. Date Signed: 07/18/2017 03:04 PM Electronically Signed By:Desiree Boss LCSW
[2017-07-19] MEDS: LEVOTHYROXINE 75 MCG TAB PO SCH (06:03)
[2017-07-19] MEDS: PANTOPRAZOLE SODIUM 40 MG TAB PO SCH (08:53)
[2017-07-19] MEDS: RIVAROXABAN 20 MG TAB PO SCH (08:53)
[2017-07-19] MEDS: VENLAFAXINE XR 37.5 MG CAP PO SCH (08:53)
--- NOTE | 2017-07-19 13:28 | HOSPPROG ---
Hospitalist Progress Note Assessment/Plan: 82 yo F with PMH of dementia admitted with increased confusion and weakness and suspected overall FTT # acute metabolic encephalopathy: increased in the setting of likely pna/ possible uti. Initially improved but now again worsening, suspect component of delirium related to hospitalization etc. Much improved today. # generalized weakness: has been worsening in the setting of dementia and as above suspected infectious process as next. PT/OT involved. Patient likely needs higher level of care as next # FTT: patient has not been eating, very weak and unable to ambulate on her own , discussed with patients daughter that this could be related to patient beginning to enter the dying stage of life though it may be a bit early to say for sure. Palliative pending. # ? low b12: B12 on the low normal range but given elderly patient query if this is truly low. will get MMA/homocysteine levels # pneumonia: CXR personally reviewed and notable for LLL PNA, started on levofloxacin and will continue for now, cultures with ngtd. will get repeat cxr in am to see if interval change present # pyuria: without urinary sxs but with increased confusion and weakness as above , started on levofloxacin which would likely cover as well, urine cxs pending # recent PE: continue xarelto # dementia: with progression over the last year and significantly more so over last several months, suspect she is no longer safe to be cared for at home as above concern for FTT # IP status--looking to transition to [facility] likely in am Care plan reviewed with patients daughter as above Subjective: no significant overnight events, pateint appears to be more interactive and oriented today Objective: Vital Signs Temp Pulse Resp BP Pulse Ox 36.4 C 88 18 147/96 H 96 07/19/17 09:19 07/19/17 09:19 07/19/17 09:19 07/19/17 09:19 07/19/17 09:19 Microbiology 07/17/17 05:45 Urine Culture - Final Urine,Clean Catch Gram Neg Kike Nonlactose Ferm. Three [place] Types Laboratory Results 07/17/17 04:30 07/18/17 07/19/17 07/20/17 05:59 05:59 05:59 Intake Total 2040 3133 Output Total 1 400 Balance 0 2733 PT 15.7 SEC (12.0-15.0) H 07/16/17 15:01 INR 1.23 (0.83-1.16) H 07/16/17 15:01 awake alert anicteric op clear rrr no mrg cta b soft nt nd no cce warm dry well perfused with e/o poor memory c/w dementia ICD10 Worksheet Patient Problems: Problems Problem Status Onset Left lower lobe pneumonia Acute chronicdiseasemgmt/transitionalcare Acute DVT (deep venous thrombosis) Acute Pulmonary embolism Acute
--- NOTE | 2017-07-19 14:59 | ASMTCMCOM ---
CM Note CM Note Notes: [facility] has accepted pt. Plan is for DC there tomorrow. Date Signed: 07/19/2017 02:58 PM Electronically Signed By:Desiree Boss LCSW
[2017-07-20] MEDS: LEVOTHYROXINE 75 MCG TAB PO SCH (05:24)
[2017-07-20 08:23] VITALS: BP 142/77
[2017-07-20] MEDS: RIVAROXABAN 20 MG TAB PO SCH (09:49)
[2017-07-20] MEDS: VENLAFAXINE XR 37.5 MG CAP PO SCH (09:49)
[2017-07-20] MEDS: PANTOPRAZOLE SODIUM 40 MG TAB PO SCH (09:49)
[2017-07-20] MEDS ORDERED: CYANO/VITAMIN B12 1000 MCG/ML VIAL IM ONE (10:07)
--- NOTE | 2017-07-20 10:10 | PDIAF ---
- Diagnosis Code Status: Do Not Resuscitate - Medication Management Discharge Medications: Medications to Continue on Transfer Esomeprazole Magnesium [Nexium] 20 mg PO DAILY 04/13/16 [Last Taken 07/15/17] Herbals/Supplements -Info Only 1 ea PO DAILY #0 09/11/16 [Last Taken 04/10/17] Levothyroxine [Synthroid 75 mcg (*)] 75 mcg PO DAILY06 #0 09/11/16 [Last Taken 07/15/17] Loperamide HCl [Imodium 2 mg (*)] 2 mg PO PRN PRN 04/12/17 [Last Taken Unknown] Acetaminophen [Tylenol 325mg (*)] 650 mg PO Q4HRS PRN tab 04/14/17 [Last Taken Unknown] Rivaroxaban [Xarelto] 20 mg PO DAILY 07/16/17 [Last Taken Unknown] Venlafaxine HCl [Venlafaxine HCl ER] 37.5 mg PO DAILY 07/16/17 [Last Taken Unknown] Cyanocobalamin [Vitamin B12 (*)] 1,000 mcg PO DAILY #30 tab 07/20/17 [Last Taken Unknown] levOFLOXACIN [levAQUIN (*)] 750 mg PO Q2D@1000 #3 tab 07/20/17 [Last Taken Unknown] Discharge Medications: Refer to the Discharge Home Medication list for PRN reason. - Orders Services needed: Registered Nurse, Certified Gis Instructor, Physical Therapy, Occupational Therapy Diet Recommendation: no restrictions on diet - Follow Up Care Current Providers and Referrals: Portillo Haerd MD [Primary Care Provider] - As per Instructions
--- NOTE | 2017-07-20 11:44 | ASMTCMCOM ---
CM Note CM Note Notes: Pt ready to DC to [facility] today. Final orders faxed. [place] set for 2:00. Date Signed: 07/20/2017 11:43 AM Electronically Signed By:Desiree Boss LCSW
--- NOTE | 2017-07-20 13:59 | PDDCSUM ---
Discharge Summary Discharge Summary: Dates of service 07/16-07/20/17 Procedures: brain MRI Consultations: none Hospital course by problem: 82 yo F with PMH of dementia admitted with increased confusion and weakness and suspected overall FTT # acute metabolic encephalopathy: increased in the setting of likely pna/ possible uti. Baseline dementia and likely some confusion related to her hospitalization but improving # generalized weakness: has been worsening in the setting of dementia and as above suspected infectious process as next. PT/OT involved, improving but will dc to snf # FTT: patient has not been eating, very weak and unable to ambulate on her own , discussed with patients daughter that this could be related to patient beginning to enter the dying stage of life though it may be a bit early to say for sure. Palliative consulted and reviewed possibility for the future of hospice, for now plans for snf # ? low b12: B12 on the low normal range with elevated homocysteine levels and pending MMA, will start on replacement for now # pneumonia: CXR personally reviewed and notable for LLL PNA, started on levofloxacin and will dc home to complete 7 day course # pyuria: without urinary sxs but with increased confusion and weakness as above , started on levofloxacin which would likely cover as well, urine cxs with multiple organisms # dementia: with progression over the last year and significantly more so over last several months, suspect she is no longer safe to be cared for at home as above concern for FTT DC to SNF > 35 min spent in dc of patient more than half in coordination of care
--- NOTE | 2017-07-20 14:45 | ASDISCHSUM ---
Discharge Information Plan Status: Medically Cleared to Leave: Discharge Date:07/20/2017 01:40 PM CM D/C Disposition: ADT D/C Disposition:[facility] Facility Projected Discharge Date:07/20/2017 11:00 AM Transportation at D/C: Discharge Delay Reason: Follow-Up Date:07/20/2017 11:00 AM Discharge Slot: Final Diagnosis: Placement Information Referral Type:*Group Home/SNF Referral ID:[id number] Provider Name:[facility] Address 1:[address] Address 2: City:[place] Selection Factors: State:[place] Patient Contact Information Contact Name:NORBERTO Relationship:Daughter Address:[address] City:[place] Alternate Phone: State/Zip Code:[place] [address] Email: Financial Information Financial Class:Medicare Primary Plan Desc:MEDICARE INPATIENT Primary Plan Number:[id number] Secondary Plan Desc:[employer]LE Secondary Plan Number:[id number] Assessment Information [facility] CM Progress Note CM Note CM Note Notes: Pt admitted for weakness. She will need a SNF. Pt has been to [facility] in the past and is currently on the wait list for [facility] in [facility]. Refrrals sent ot [facility] and [facility]. [facility] completed. CM to follow. Date Signed: 07/18/2017 03:04 PM Electronically Signed By:Desiree Boss LCSW [facility] CM Progress Note CM Note CM Note Notes: [facility] has accepted pt. Plan is for DC there tomorrow. Date Signed: 07/19/2017 02:58 PM Electronically Signed By:Desiree Boss LCSW [facility] CM Progress Note CM Note CM Note Notes: Pt ready to DC to [facility] today. Final orders faxed. [place] set for 2:00. Date Signed: 07/20/2017 11:43 AM Electronically Signed By:Desiree Boss LCSW Intervention Information Intervention Type:*IM-Signed Date of Service:07/19/2017 02:58 PM Patient Type:Inpatient Staff Member:Licha Christie Hours: Discipline: Severity: Comment:
== END 2017-07-20 13:40 | DRG 193 ==
LOC: OBSVTOIN 15:52 → F1N 18:04
PROVIDERS: ADMIT Internal Medicine; ATTEND Internal Medicine
DX: J18.9 Pneumonia, unspecified organism (principal); G93.41 Metabolic encephalopathy; N39.0 Urinary tract infection, site not specified; R62.7 Adult failure to thrive; F03.90 Unspecified dementia, unspecified severity, without behavioral disturbance, psychotic disturbance, mood disturbance, and anxiety; K21.9 Gastro-esophageal reflux disease without esophagitis; I10 Essential (primary) hypertension; E03.9 Hypothyroidism, unspecified; Z86.711 Personal history of pulmonary embolism; Z86.718 Personal history of other venous thrombosis and embolism; Z66 Do not resuscitate
CPT/HCPCS: 82607-90; 83605-PO; 83921-90; 84484-PO; 92523-GN; 97110-GP; 97116-GP; 97162-GP; 97166-GO; 97530-GO; 97530-GP; 97535-GO; G8978-GP-CM; G8979-GP-CJ; G8987-GO-CM; G8988-GO-CL; G9168-GN-CM; G9169-GN-CM; G9170-GN-CM; J1956; J3420